=== PATIENT | female | born 1960 | race Caucasian/White ===

== ENCOUNTER 2018-07-18 06:20 | Inpatient (IN) ==
[2018-07-08 12:53] LABS: Appearance,Urine CLEAR; Bilirubin,Urine NEG (NEG); Color,Urine STRAW; Glucose,Urine (UA) NEGATIVE (NEG); Leukocyte Esterase,Urine NEG /uL (NEG); Protein,Urine NEG (NEG); Specific Gravity,Urine 1.011 (1.000-1.035); Urine Blood NEG mg/dL (<0.03); Urobilinogen,Urine NEG (NEG)
[2018-07-08 13:31] LABS: Basophils # (Auto) 0 K/mcL (0.0-0.3); Basophils % (Auto) 0.3 % (0.0-2.0); Eosinophils # (Auto) 0.1 K/mcL (0.0-0.7); Granulocytes % (Auto) 68.9 % (38.0-78.0); Lymphocytes # (Auto) 1.4 K/mcL (1.5-4.8); Lymphocytes % (Auto) 24.1 % (15.5-49.0); Mean Cell Volume 88.5 fL (80.0-100.0); Mean Corpuscular HGB Conc 32.8 g/dL (31.0-36.0); Monocytes # (Auto) 0.3 K/mcL (0.1-0.9); Monocytes % (Auto) 4.7 % (1.0-12.0); Platelet Count 250 K/mcL (140-440); RBC 4.99 M/mcL (4.00-5.20); Red Cell Distribution Width 14.3 % (11.5-14.5)
[2018-07-08 13:34] LABS: Blood Urea Nitrogen 17 mg/dl (6-20)
[2018-07-18] MEDS ORDERED: ceFAZolin 2 GM in DEXTROSE 5% IN WATER 50 ML IV SCH (07:00)
[2018-07-18] MEDS ORDERED: 0.9 % SODIUM CHLORIDE 9 ML, KETOROLAC 30 MG, ROPIVACAINE HCL/PF 49.5 ML, EPINEPHrine 0.... IJ SCH (07:00)
[2018-07-18] MEDS ORDERED: GENTAMICIN SULFATE 800 MG/20 ML VIAL IR ONE (08:09)
[2018-07-18] MEDS ORDERED: SCOPOLAMINE 1 PATCH PATCH TOPICAL ONE (09:25)
[2018-07-18] MEDS ORDERED: PROPOFOL 200 MG/20 ML VIAL IV ONE (10:46)
[2018-07-18] MEDS ORDERED: ONDANSETRON 4 MG/2 ML VIAL ONE (10:46)
[2018-07-18] MEDS ORDERED: MIDAZOLAM 5 MG/5 ML VIAL ONE (10:46)
[2018-07-18] MEDS ORDERED: DEXAMETHASONE 10 MG/ML VIAL ONE (10:46)
[2018-07-18] MEDS ORDERED: LIDOCAINE HCL/PF 100 MG/5 ML SYRINGE IV ONE (10:46)
[2018-07-18] MEDS ORDERED: ONDANSETRON 4 MG/2 ML VIAL IV PRN ×2 (12:11→12:44)
[2018-07-18] MEDS ORDERED: FLUMAZENIL 0.1 MG/ML ML IV PRN (12:11)
[2018-07-18] MEDS ORDERED: NALOXONE HCL 0.4 MG/ML VIAL IV PRN (12:11)
[2018-07-18] MEDS ORDERED: PROMETHAZINE 25 MG/ML VIAL IV PRN (12:11)
[2018-07-18] MEDS ORDERED: IPRATROPIUM/ALBUTEROL 3 ML AMPUL.NEB NEB PRN (12:11)
[2018-07-18] MEDS ORDERED: BENZOCAINE/MENTHOL 1 LOZENGE PO PRN ×2 (12:11→12:44)
[2018-07-18] MEDS ORDERED: ACETAMINOPHEN 1,000 MG/100 ML BOTTLE IV ONE (12:11)
[2018-07-18] MEDS ORDERED: KETOROLAC 15 MG/ML VIAL IV PRN (12:11)
[2018-07-18] MEDS ORDERED: LACTATED RINGERS 250 ML IV PRN (12:11)
[2018-07-18] MEDS ORDERED: MEPERIDINE 25 MG/ML SYRINGE IV PRN (12:11)
[2018-07-18] MEDS ORDERED: diphenhydrAMINE 50 MG/ML VIAL IV PRN (12:11)
[2018-07-18] MEDS ORDERED: LACTATED RINGERS 1,000 ML IV SCH (12:15)
[2018-07-18] MEDS ORDERED: MAGNESIUM HYDROXIDE 30 ML ORAL.SUSP PO PRN (12:44)
[2018-07-18] MEDS ORDERED: BISACODYL 10 MG SUPP.RECT PR PRN (12:44)
[2018-07-18] MEDS ORDERED: FLEETS ADULT ENEMA PR PRN (12:44)
[2018-07-18] MEDS ORDERED: POLYETHYLENE GLYCOL 3350 17 GM PACKET PO PRN (12:44)
[2018-07-18] MEDS ORDERED: TRANEXAMIC ACID 1,000 MG/10 ML VIAL IV ONE (12:44)
--- NOTE | 2018-07-18 12:53 | Brief Operative Note ---
Date of procedure: 07/18/18 Pre-op diagnosis: DJD left knee Post-op diagnosis: same Procedure: left TKR Grafts/Implants: Yes (triathlon knee) Anesthesia: EROS Surgeon: Andi Gallo General Education Professor: Alex Damon Estimated blood loss (cc): 100 Tourniquet Time (Minutes): 68 Specimens Removed/Pathology: none sent Condition: stable Disposition: PACU
[2018-07-18] MEDS: fentaNYL 100 MCG/2 ML VIAL IV PRN ×4 (13:26→13:35)
[2018-07-18] MEDS: HYDROmorphone 2 MG/ML VIAL IV PRN ×2 (13:51→14:07)
[2018-07-18] MEDS ORDERED: HYDROmorphone 2 MG/ML VIAL ONE (13:51)
--- NOTE | 2018-07-18 14:22 | XRay Report ---
CLINICAL INFORMATION: Post-op total knee COMPARISON: None. FINDINGS: Total knee prostheses is anatomically aligned. No osseous abnormality. Periarticular gas and soft tissue seen as expected. IMPRESSION: Negative Interpreted and Authenticated by: Carlos Sy 07/18/18
[2018-07-18] MEDS: 0.9 % SODIUM CHLORIDE 10 ML SYRINGE IV SCH ×2 (14:27→20:12)
[2018-07-18] MEDS: 0.9 % SODIUM CHLORIDE 1,000 ML IV SCH (14:41)
--- NOTE | 2018-07-18 16:01 | Operative Note ---
DATE OF OPERATION: 07/18/2018 PREOPERATIVE DIAGNOSIS: Degenerative joint disease of the left knee. POSTOPERATIVE DIAGNOSIS: Degenerative joint disease of the left knee. OPERATION: Omar-assisted left total knee replacement. SURGEON: Andi Gallo MD VALIDATION MANAGER: Alex Damon PA-C. ANESTHESIA: General. ESTIMATED BLOOD LOSS: 100 mL TOURNIQUET TIME: 68 minutes. SUMMARY OF PROCEDURE: General anesthesia was attained. The left leg was prepped and draped. Two stab incisions were made in the femur to place the pins for the robot array. The same was done in the tibia. A midline incision was made from the quadriceps to the tibial tubercle. This was taken down sharply to the quadriceps and medial retinaculum. A mid vastus approach was used. The split in the vastus medialis was made followed by 2 cm split in the quadriceps and then the medial retinaculum. The patella was mobilized laterally. The medial soft tissue was released. The checkpoint was placed in the femur and then the tibia. These points were confirmed on the robot. The leg was then rolled counterclockwise to alice the hip. The balancing was then done and the femoral and tibial landmarks confirmed. The balancing was then done for extensor and flexor balancing and gaps. A balance flexion and extension gap were obtained on the robotic plan. Using the robotic arm the tibial cut was made followed by all the femoral cuts. The bone was removed. The PCL was preserved. Trial reductions were then done using a 4 tibia and a 5 femur. The best combination of a full range of motion with excellent stability and balance stability was with a 9 mm cruciate retaining insert. The bone surfaces were thoroughly irrigated. A block was placed posteriorly using a multimodal solution. The measured resection was then done of the patellar bringing it down from 24 to 14 mm. The patella sized to a 32. A trial was done and the patella did not need a lateral release on the no-touch test. The components were next cemented in. Excess cement was removed. The cement was left to harden with the knee in full extension. The removal of all the cement outside of the prosthesis was confirmed by checking multiple times. The tourniquet was let down. All bleeding points were coagulated. The quadriceps and medial retinaculum as well as a BMI were closed in two layers using auxips-eh-rdinr sutures of #2 FiberWire followed by a running locking 0 Maxon. The subcutaneous tissue was closed with interrupted buried 2-0 Monocryl and the skin was closed with Dermabond. A sterile compressive dressing was applied. The sponge and needle count was correct. The patient tolerated the procedure well and was taken to the recovery room in stable condition. [id number] Job ID: [id number] Doc ID: [id number] Andi Gallo MD
[2018-07-18] MEDS: ceFAZolin 1 GM VIAL IV SCH (17:40)
[2018-07-18] MEDS: morphine 15 MG TABLET PO PRN (18:27)
[2018-07-18] MEDS: METHOCARBAMOL 750 MG TABLET PO PRN (20:05)
[2018-07-18] MEDS: FLUoxetine HCL 20 MG CAPSULE PO SCH (20:07)
[2018-07-18] MEDS: DOCUSATE SODIUM 100 MG CAPSULE PO SCH (20:07)
[2018-07-18] MEDS: SENNOSIDES 1 TABLET PO SCH (20:07)
[2018-07-18] MEDS: OMEPRAZOLE 20 MG CAPSULE PO SCH (20:07)
[2018-07-18] MEDS: ZOLPIDEM 5 MG TABLET PO SCH (20:07)
[2018-07-18] MEDS: ASPIRIN 325 MG ENTERIC COATED TABLET PO SCH (20:08)
[2018-07-19] MEDS: morphine 15 MG TABLET PO PRN ×3 (00:12→07:31)
[2018-07-19] MEDS: ceFAZolin 1 GM VIAL IV SCH (01:34)
[2018-07-19] MEDS: 0.9 % SODIUM CHLORIDE 1,000 ML IV SCH ×2 (03:21→17:32)
[2018-07-19] MEDS: METHOCARBAMOL 750 MG TABLET PO PRN ×3 (03:57→21:34)
[2018-07-19] MEDS: 0.9 % SODIUM CHLORIDE 10 ML SYRINGE IV SCH ×3 (04:00→21:35)
[2018-07-19] MEDS: LEVOTHYROXINE 50 MCG TABLET PO SCH (07:58)
[2018-07-19] MEDS ORDERED: HYDROmorphone PCA 30 MG/30 ML PCA.VIAL IV PRN (08:34)
[2018-07-19] MEDS: OMEPRAZOLE 20 MG CAPSULE PO SCH ×2 (08:45→21:34)
[2018-07-19] MEDS: HYDROCHLOROTHIAZIDE 25 MG TABLET PO SCH (08:46)
[2018-07-19] MEDS: SPIRONOLACTONE 25 MG TABLET PO SCH (08:46)
[2018-07-19] MEDS: buPROPion 150 MG TAB.XL.24H PO SCH (08:47)
[2018-07-19] MEDS: FLUoxetine HCL 20 MG CAPSULE PO SCH ×2 (08:47→21:35)
[2018-07-19] MEDS: DOCUSATE SODIUM 100 MG CAPSULE PO SCH ×2 (08:47→21:34)
[2018-07-19] MEDS: ASPIRIN 325 MG ENTERIC COATED TABLET PO SCH ×2 (08:48→21:34)
[2018-07-19] MEDS ORDERED: [UNRECOGNIZED DRUG - OTHER] PO SCH (09:00)
[2018-07-19] MEDS ORDERED: HYDROmorphone 2 MG/ML VIAL IV ONE (09:23)
--- NOTE | 2018-07-19 13:35 | Orthopedic Progress Note ---
Subjective Patient information: Note initiated : 07/19/18 at 1:32 pm Service Date, if different from initiated Date: [] Patient: Lauren Delgado 57 y/o F admitted on 07/18/18 for Left Total Knee Arthroplasty Omar. Chief Complaint: [] Principal diagnosis: Left TKA Interval history: Patient had worsening pain since last night and is now using Dilaudid IV for pain but says she is still fairly uncomfortable. She denies any calf pain, chest pain, SOB, cough, or any other acute symptoms. Objective Vital signs: Vital Signs Temp Pulse Resp BP BP Pulse Ox 07/19/18 13:00 15 93 07/19/18 11:56 16 94 07/19/18 11:55 70 07/19/18 11:50 97.8 F 68 16 105/62 95 07/19/18 11:12 16 07/19/18 09:41 70 07/19/18 04:17 103/51 07/19/18 03:55 97.7 F 65 18 97/63 95 07/19/18 00:35 98 F 71 18 106/59 90 07/18/18 19:25 98.9 F 72 16 112/69 93 07/18/18 16:30 98.2 F 64 16 108/70 94 07/18/18 16:00 98 F 70 16 107/67 92 07/18/18 15:33 98.4 F 65 16 109/66 07/18/18 15:00 98 F 70 16 108/68 07/18/18 14:45 98 F 67 14 106/70 92 07/18/18 14:30 98.2 F 75 16 114/77 91 07/18/18 14:10 97.2 F 61 19 110/60 97 07/18/18 13:55 97.2 F 64 17 108/55 98 07/18/18 13:40 97.2 F 71 21 114/68 98 Intake and Output 07/18/18 07/19/18 07/19/18 21:59 05:59 13:59 Intake Total 600 1250 480 Output Total 1000 350 700 Balance -400 900 -220 Intake: IV 1000 Sodium Chloride 0.9% 1,000 ml @ 1000 75 mls/hr IV .[id number] [facility] Rx#: [id number] Oral 600 250 480 Output: Urine Catheter Amount 1000 700 Void Amount 350 Other: Meal Dinner Breakfast Percent of Meal Consumed 50% 25% Feeding Ability Independent Independent Urine Appearance Clear Clear Clear Straight Clear Urine Color Straw Straw Bright Yellow Straight Bright Yellow Urine Odor Normal Normal Weight 239 lb Intake & Output: Intake & Output 07/18/18 07/19/18 07/19/18 21:59 05:59 13:59 Intake Total 600 1250 480 Output Total 1000 350 700 Balance -400 900 -220 Weight 239 lb Intake: IV 1000 Sodium Chloride 0.9% 1,000 ml @ 1000 75 mls/hr IV .[id number] [facility] Rx#: [id number] Oral 600 250 480 Output: Urine Catheter Amount 1000 700 Void Amount 350 Other: Meal Dinner Breakfast Percent of Meal Consumed 50% 25% Feeding Ability Independent Independent Urine Appearance Clear Clear Clear Straight Clear Urine Color Straw Straw Bright Yellow Straight Bright Yellow Urine Odor Normal Normal Incision clean and dry: Yes Dressing: Yes clean, Yes dry Weight bearing status: full Neurological exam IM: Yes neurovascular intact Extremities exam IM: No calf tenderness, Yes Foot pink and warm - Labs CBC & BMP: 07/19/18 04:45 07/08/18 10:58 Labs: 07/19/18 07/08/18 04:45 10:58 Hgb 11.3 L 14.5 Hct 34.1 L 44.2 Assessment and Plan (1) Status post total knee replacement 1. Begin transitioning to oral pain medicine starting tomorrow morning 2. continue PT 3. Plan to discharge tomorrow 4. follow up next week. Status: Acute
[2018-07-19] MEDS: ZOLPIDEM 5 MG TABLET PO SCH (21:34)
[2018-07-19] MEDS: SENNOSIDES 1 TABLET PO SCH (21:35)
[2018-07-20] MEDS: METHOCARBAMOL 750 MG TABLET PO PRN (04:17)
[2018-07-20] MEDS: 0.9 % SODIUM CHLORIDE 1,000 ML IV SCH (04:44)
[2018-07-20] MEDS: 0.9 % SODIUM CHLORIDE 10 ML SYRINGE IV SCH (05:54)
[2018-07-20] MEDS ORDERED: HYDROmorphone 2 MG TABLET PO PRN (07:48)
[2018-07-20] MEDS: ONDANSETRON 4 MG ODT TABLET SL PRN ×2 (07:58→12:59)
--- NOTE | 2018-07-20 08:43 | Orthopedic Progress Note ---
Subjective Patient information: Note initiated : 07/20/18 at 8:42 am Service Date, if different from initiated Date: [] Patient: Lauren Delgado 57 y/o F admitted on 07/18/18 for Left Total Knee Arthroplasty Omar. Chief Complaint: [doing well on pain pills and ambulating very well] Principal diagnosis: Left TKA Objective Vital signs: Vital Signs Temp Pulse Resp BP BP Pulse Ox 07/20/18 07:41 99.6 F H 72 16 112/62 95 07/20/18 04:29 18 07/20/18 04:27 98.9 F 98 H 18 131/81 98 07/19/18 23:48 98.9 F 77 18 111/63 96 07/19/18 20:00 20 98 07/19/18 19:32 98.5 F 73 20 108/64 98 07/19/18 18:30 15 07/19/18 15:46 97.9 F 16 110/66 95 07/19/18 15:00 16 97 07/19/18 14:00 67 17 96 07/19/18 13:00 15 93 07/19/18 11:56 16 94 07/19/18 11:55 70 07/19/18 11:50 97.8 F 68 16 105/62 95 07/19/18 11:12 16 07/19/18 09:41 70 Intake and Output 07/19/18 07/20/18 07/20/18 21:59 05:59 13:59 Intake Total 240 Output Total 700 1250 Balance -460 -1250 Intake: Oral 240 Output: Void Amount 700 1250 Other: Urine Appearance Clear Urine Color Dark Yellow Weight 241 lb Intake & Output: Intake & Output 07/19/18 07/20/18 07/20/18 21:59 05:59 13:59 Intake Total 240 Output Total 700 1250 Balance -460 -1250 Weight 241 lb Intake: Oral 240 Output: Void Amount 700 1250 Other: Urine Appearance Clear Urine Color Dark Yellow Incision: Yes healing Incision clean and dry: Yes Dressing: Yes clean Weight bearing status: full Neurological exam IM: Yes oriented X3, Yes neurovascular intact Extremities exam IM: Yes Foot pink and warm (dc home today), Yes neurovascular intact - Labs CBC & BMP: 07/20/18 04:25 07/08/18 10:58 Labs: 07/20/18 07/19/18 07/08/18 04:25 04:45 10:58 Hgb 11.8 L 11.3 L 14.5 Hct 35.0 L 34.1 L 44.2
[2018-07-20] MEDS: HYDROmorphone 2 MG TABLET PO PRN ×2 (08:56→12:58)
[2018-07-20] MEDS: LEVOTHYROXINE 50 MCG TABLET PO SCH (08:57)
--- NOTE | 2018-07-20 09:09 | Discharge Summary ---
Ortho Discharge - TKA - Patient Instructions Diet: Regular Diet Total Knee Protocol: For Total Knee: Start ROM DEB with stationary bike or rocking chair. Work on gaining full extension of knee. Posterior dislocation precautions provided. Hip abductor strengthening and gait training instructions provided. Apply Cryocuff as instructed. Patient Education: Cyclobenzaprine (By mouth), Hydromorphone (By mouth), Ondansetron (By mouth), Total Knee Replacement (DC) Additional Instructions: Discharge Instructions: Please pick up man CPM from [facility] (within 24 hours of discharge). Instructions for use: Start CPM at 40 degrees flexion and advance as tolerated to 90 degrees flexion. Use Daily as tolerated. Do the exercises at home that physical therapy gave you throughout the day. Weight bearing as tolerated. Wear comfortable clothing for physical therapy. You are scheduled to start physical therapy at [facility] ([phone]) on Take your prescription, photo ID, insurance cards, and current medication list with you to your first physical therapy appointment. Take your prescription to pick up man any medication or equipment (such as walker, crutches, toilet riser or C.P.M.) You have Dermabond (a dressing with a mesh-like appearance), DO NOT remove mesh. Cover site daily with gauze dressing. You may start showering on post op day #2. The Dermabond dressing can get wet, do not scrub dressing. Pat dry, then place new dressing (above). To avoid constipation while taking any narcotic pain medication, take an over the counter stool softener/laxative. Use your Cryocuff or ice packs as directed, on for 20 minutes at a time throughout the day. This and elevation will help with pain and swelling. Call your physician for fevers above 100.5 or pain not controlled by medication. Your prescriptions are with your discharge information. Some medications were electronically transmitted to your pharmacy of choice. Take Aspirin twice daily, for 30 days, as prescribed to prevent blood clots (see medication list). - Follow Up Plan Follow Up Appointments: Alex Damon PA-C [Physician Matcher] - 07/31/18 10:40 am Disposition: Home, Self-Care Prognosis: Fair Rehab Potential: Fair I certify that the patient requires SNF services: No - Orders For Discharge Prescriptions: Aspirin [Ecotrin] 325 mg PO BID #60 tab.ec Cyclobenzaprine [Flexeril] 10 mg PO TID PRN #30 tab PRN Reason: Spasms HYDROmorphone HCL [Dilaudid] 4 mg PO Q4-6HP PRN #60 tab PRN Reason: Pain Ondansetron [Zofran ODT] 4 mg SL Q4HP PRN #30 tab PRN Reason: Nausea Additional Discharge Orders: Physical Therapy at Discharge - TKA Location: None Selected Commode Discharge Order Location: None Selected
[2018-07-20] MEDS: FLUoxetine HCL 20 MG CAPSULE PO SCH (11:47)
[2018-07-20] MEDS: HYDROCHLOROTHIAZIDE 25 MG TABLET PO SCH (11:47)
[2018-07-20] MEDS: SPIRONOLACTONE 25 MG TABLET PO SCH (11:48)
[2018-07-20] MEDS: ASPIRIN 325 MG ENTERIC COATED TABLET PO SCH (11:49)
[2018-07-20] MEDS: OMEPRAZOLE 20 MG CAPSULE PO SCH (11:49)
[2018-07-20] MEDS: buPROPion 150 MG TAB.XL.24H PO SCH (11:49)
[2018-07-20] MEDS: DOCUSATE SODIUM 100 MG CAPSULE PO SCH (11:49)
== END 2018-07-20 14:30 | disposition home or self-care (01) | DRG 470 ==
LOC: MEDSUR 06:20
PROVIDERS: ADMIT Orthopaedic Surgery Foot and Ankle Surgery; ATTEND Orthopaedic Surgery Foot and Ankle Surgery

== ENCOUNTER 2022-04-10 13:40 | Inpatient (IN) ==
[2022-04-10] MEDS ORDERED: IOPAMIDOL 100 ML BOTTLE IV ONE (13:41)
--- NOTE | 2022-04-10 14:00 | Emergency Department Note ---
HPI General Chief complaint: Abdominal Pain Stated complaint: abd. pain Time Seen by Provider: 04/10/22 14:00 Source: patient Mode of arrival: wheelchair Limitations: no limitations History of Present Illness HPI Narrative: Narrative: Patient is a 61-year-old female with a complex history who presents to the emergency department due to abdominal pain since 4 am. She began to have pain in the right upper quadrant with radiation to her back at 4 am. She also has had nausea, vomiting, and diarrhea. Her vomit has been yellow in color without blood. She denies palliative or provocative factors for pain, nausea, and diarrhea. She is denies any other concerns at this time. Related Data Home Medications Medication Instructions Recorded Confirmed cholecalciferol (vitamin D3) 125 125 mcg PO QDAY 09/02/19 04/11/22 mcg (5,000 unit) capsule aspirin 81 mg tablet,delayed 81 mg PO QHS 12/07/21 04/11/22 release albuterol sulfate 2.5 mg/3 mL 2.5 mg inhalation QIDP PRN 04/11/22 04/11/22 (0.083 %) solution for nebulization shortness of breath or wheezing albuterol sulfate 90 mcg/actuation 2 puff inhalation Q4-6HP PRN 04/11/2204/02 aerosol inhaler (Ventolin HFA) shortness of breath or wheezing bupropion HCl 300 mg 24 hr tablet, 300 mg PO DAILY 04/11/22 04/11/22 extended release fluoxetine 40 mg capsule 40 mg PO BID 04/11/22 04/11/22 levothyroxine 50 mcg tablet 50 mcg PO QAMAC 04/11/22 04/11/22 magnesium oxide 400 mg PO HS 04/11/22 04/11/22 omeprazole 20 mg capsule,delayed 20 mg PO BIDAC 04/11/22 04/11/22 release Previous Rx's Medication Instructions Recorded furosemide 20 mg tablet 20 mg PO QAM #90 tabs 08/30/21 estradiol 2 mg (7.5 mcg/24 hour) See Rx Instructions .Route 10/04/21 vaginal ring (Estring) .COMPLEX #1 Ring ondansetron 4 mg disintegrating 4 mg PO Q6H PRN nausea and 01/10/22 tablet vomiting #20 tabs spironolactone 25 2 tab PO QDAY #180 tabs 03/21/22 mg-hydrochlorothiazide 25 mg tablet tirzepatide 5 mg/0.5 mL 5 mg (0.5 mL) subcut QWEEK #2 mL 03/21/22 subcutaneous pen injector (Mounjaro) tirzepatide 2.5 mg/0.5 mL 2.5 mg (0.5 mL) subcut QWEEK 4 03/22/22 subcutaneous pen injector weeks #2 mL (Mounjaro) zolpidem 10 mg tablet 10 mg PO HS INSOMNIA #90 tabs 03/31/22 Allergies Allergy/AdvReac Type Severity Reaction Status Date / Time iron dextran complex Allergy Severe Difficulty Verified 04/10/22 13:46 Breathing gabapentin [From Neurontin] Allergy Unknown Unknown Verified 04/10/22 21:22 droperidol AdvReac Mild Anxiety Verified 04/10/22 13:46 prochlorperazine AdvReac Mild Vomiting Verified 04/10/22 13:46 [From Compazine] IVP DYE Allergy Mild Hives Uncoded 03/21/22 08:04 Review of Systems ROS ROS Narrative: Narrative: Constitutional: Denies fever or weakness Eyes: Denies eye pain or vision change ENT ED: Denies throat pain or rhinorrhea Cardiovascular: Denies chest pain or edema Respiratory: Denies shortness of breath or cough Gastrointestinal: Reports abdominal pain, nausea, vomiting and diarrhea; Denies constipation, hematochezia or melena Genitourinary: Denies dysuria or frequency Musculoskeletal: Denies back pain or myalgia Integumentary: Denies rash or lesions Neurological: Denies headache, weakness, numbness, confusion, abnormal gait or dizziness Endocrine: Denies fatigue or polyuria PFSH Narrative Patient History Narrative: Narrative: Medical/Surgical/Family History All Active Problems Acute cholangitis (Acute) Sepsis (Acute) Acute pancreatitis (Acute) Obstructive sleep apnea (Chronic) Diabetes (Chronic) H/O rectocele repair (Acute) Hypercalcemia (Acute) Chronic kidney disease (Chronic) Restrictive lung disease (Chronic) Nocturnal hypoxia (Chronic) Lower extremity weakness (Acute) Elevated liver enzymes (Chronic) Hyperglycemia (Chronic) Recurrent candidiasis of vagina (Chronic) Sinusitis, acute maxillary (Acute) Pulmonary scarring (Chronic) Shortness of breath (Chronic) Fluid retention (Chronic) H/O cardiac radiofrequency ablation (Acute) Morbid obesity with BMI of 40.0-44.9, adult (Chronic) Asthma (Chronic) Acute URI (Acute) Cough (Chronic) Atrial fibrillation (Chronic) Tachycardia with heart rate 121-140 beats per minute (Acute) Abnormal vaginal bleeding in postmenopausal patient (Chronic) Acute pelvic pain, female (Acute) Cervicitis, acute, non-specific (Acute) Bronchospasm (Acute) Pneumonia (Acute) Encounter for Health Maintenance Examination in Adult (Acute) History of hysterectomy leaving cervix intact (Chronic) Cholecystectomy planned (Chronic) Obesity (Chronic) Hiatal hernia (Chronic) Arthritis of left knee (Chronic) Arthralgia (Chronic) Hypertension (Chronic) Sleep apnea (Chronic) Anxiety (Chronic) Allergic rhinitis (Chronic) Hemorrhoid (Chronic) Restless leg syndrome (Chronic) Hyperlipidemia (Chronic) Edema (Chronic) Epigastric pain (Chronic) Palpitations (Chronic) Insomnia (Chronic) Depression with anxiety (Chronic) History of pancreatitis (Chronic) Chronic diarrhea (Chronic) Hypothyroidism (Chronic) Migraine (Chronic) Atrophic vaginitis (Chronic) GERD (gastroesophageal reflux disease) (Chronic) Chronic back pain (Chronic) Chronic sinusitis (Chronic) Cardiomegaly (Chronic) Surgical menopause (Chronic) Hormone replacement therapy (Chronic) Hyperglycemia (Chronic) Major depression (Chronic) Diverticulosis (Chronic) Myalgia (Chronic) Headache (Chronic) Hypotension (Chronic) Unintentional weight loss (Chronic) Decrease in appetite (Chronic) Sinusitis, acute maxillary (Chronic) Fatigue (Chronic) Gastritis (Chronic) Postmenopausal (Chronic) Encounter for medication monitoring (Chronic) Chronic narcotic use (Chronic) Nausea (Chronic) Upper respiratory infection (Chronic) Status post total knee replacement (Acute) Medical History Allergic rhinitis Anxiety Arthralgia Arthritis of left knee Atrophic vaginitis Cardiomegaly Cholecystectomy planned 02/2016 Chronic back pain Chronic diarrhea Chronic narcotic use Chronic sinusitis Decrease in appetite Depression with anxiety Diverticulosis Edema Encounter for medication monitoring Epigastric pain Fatigue Gastritis GERD (gastroesophageal reflux disease) Headache Hemorrhoid Hiatal hernia per CXR 07/2015, history of failed Familia fundoplication History of pancreatitis Hormone replacement therapy Hyperglycemia Hyperlipidemia Hypertension Hypotension Hypothyroidism Insomnia Major depression Migraine Myalgia Nausea Nocturnal hypoxia Obesity Palpitations Postmenopausal Pulmonary scarring Restless leg syndrome Restrictive lung disease Sinusitis, acute maxillary Sleep apnea Surgical menopause Unintentional weight loss Upper respiratory infection Surgical History H/O bariatric surgery gastric sleeve 2015 History of cholecystectomy (~02/2016) History of hysterectomy ~1997 Ovaries removed, cervix spared History of repair of rectocele Dr. Quiroz 12/08/21 Total knee replacement status LT knee Dr. Gallo Family History Other No pertinent family history Social History Smoking Status: Never smoker Alcohol Intake Frequency: 0-2 drinks per day Substance Use: does not use Exam Narrative Narrative: Narrative: General Limitations: no limitations General appearance: Present alert and in no apparent distress; Absent anxious, appears intoxicated or sleepy Head Head: Present atraumatic and normocephalic Eye Eye: Present EOMI; Absent scleral icterus or nystagmus ENT ENT: Present mucous membranes moist; Absent nasal congestion Neck Neck: Present full ROM; Absent tenderness Chest Chest: Present normal inspection and symmetric chest wall rise Respiratory Respiratory: Present normal lung sounds bilaterally; Absent respiratory distress or accessory muscle use Cardiovascular Cardiovascular: Present regular rate, normal rhythm and normal heart sounds Adbominal Abdominal: Present soft, tenderness, guarding and normal bowel sounds; Absent distention, rebound or rigidity Extremities Extremities: Present normal inspection and full ROM Back Back: Present normal inspection and full ROM; Absent CVA tenderness (R) or CVA tenderness (L) Neurological Neurological: Present alert and oriented X3 Psychiatric Psychiatric: Present normal affect and normal mood Skin Skin: Present warm (WNL), dry and normal color Course Vital Signs Vital signs: Vital Signs Temperature 97.9 F 04/10/22 13:43 Pulse Rate 108 H 04/10/22 13:43 Respiratory Rate 20 04/10/22 13:43 Blood Pressure 138/79 04/10/22 13:43 Pulse Oximetry (%) 97 04/10/22 13:43 Oxygen Delivery Method 04/10/22 13:43 Temperature 98.5 F 04/12/22 20:54 Pulse Rate 74 04/12/22 20:54 Respiratory Rate 14 04/12/22 20:54 Blood Pressure 127/77 04/12/22 20:54 Pulse Oximetry (%) 94 04/12/22 20:54 Oxygen Delivery Method 04/12/22 20:54 Oxygen Flow Rate (L/min) 0 04/12/22 20:00 [facility] MDM Narrative Medical decision making narrative: Narrative: Patient is a 61-year-old female with a complex history who presents to the emergency department due to abdominal pain, nausea, vomiting, and diarrhea. Differential diagnoses include pancreatitis, gastritis, peptic ulcer disease, liver disease, colitis, and sbo. Patient's CT is reassuring. Labs demonstrate elevated lipase concerning for pancreatitis. She is receiving fluids. She has received medication for pain and nausea/vomiting. I have spoken to Dr. Sherman who was concerned that patient would require an ERCP due to narrowing at the ampulla of the biliary system. We will talk to Dr. Balderas to discuss patient. I have signed patient out to Dr. Gil. Lab Data Result diagrams: 04/11/22 05:15 04/12/22 08:04 Labs: Lab Results 04/10/22 04/10/22 04/10/22 Range/Units 14:57 15:18 15:23 WBC 13.4 H (4.5-11.0) K/mcL RBC 5.57 H (3.59-5.38) M/mcL Hgb 16.4 H (11.2-15.7) g/dL Hct 48.4 H (34.1-44.9) % POC Hct 50.0 H (36-48) MCV 86.9 (80.0-100.0) fL MCH 29.4 (26.0-34.0) pg MCHC 33.9 (31.0-36.0) g/dL RDW 12.6 (11.5-14.5) % Plt Count 272 (140-440) K/mcL MPV 10.5 (8.8-12.5) fL Immature Gran % (Auto) 0.3 (0.0-0.5) % Neut % (Auto) 91.8 H (38.0-78.0) % Lymph % (Auto) 4.5 L (15.5-49.0) % [place] % (Auto) 3.1 (1.0-12.0) % Eos % (Auto) 0 (0.0-7.0) % Baso % (Auto) 0.3 (0.0-2.0) % Lymph # (Auto) 0.60 L (1.50-4.80) K/mcL [place] # (Auto) 0.41 (0.10-0.90) K/mcL Eos # (Auto) 0 (0.00-0.70) K/mcL Baso # (Auto) 0.04 (0.00-0.30) K/mcL Immature Gran # 0.04 (0.00-0.05) K/mcl Absolute Neutrophils 12.32 H (1.80-8.00) K/mcL POC VBG pH (7.32-7.42) POC VBG pCO2 at Temp (41-51) POC VBG pO2 (25-40) POC VBG HCO3 (24-28) POC VBG Total CO2 (25-29) POC Venous O2 Sat (40-70) POC VBG Base Excess (-2-2) VBG Lactic Acid (0.5-2) POC Sodium 140 (133-145) POC Potassium 3.4 (3.3-5.1) POC Chloride 104 (96-108) POC Total CO2 21.0 L (22-30) POC BUN 25 H (6-20) POC Creatinine 1.0 (0.6-1.2) POC Glucose 155 H (70-105) POC WB Ioniz Calcium 0.99 L (1.16-1.32) Total Bilirubin (0.1-1.0) mg/dL Direct Bilirubin (0-0.3) mg/dL AST (<32) U/L ALT (<40) U/L Alkaline Phosphatase (39-117) U/L Total Protein (5.9-8.4) gm/dL Albumin (3.2-5.2) gm/dL Globulin (2.2-3.7) gm/dL Lipase (7-60) U/L Procalcitonin (<0.10) ng/mL Urine Color Dona Urine Appearance Hazy A (Clear) Urine pH 5.0 (5.0-9.0) Ur Specific [place] 1.032 (1.000-1.035) Urine Protein 100 A (Negative) mg/dL Urine Glucose (UA) Negative (Negative) mg/dL Urine Ketones 80 A (Negative) mg/dL Urine Occult Blood Negative (Negative) mg/dL Urine Nitrate Negative (Negative) Urine Bilirubin Negative (Negative) mg/dL Urine Urobilinogen Negative mg/dL Ur Leukocyte Esterase Negative (Negative) /uL Urine RBC < 1 (0-3) /hpf Urine WBC 2 (0-4) /hpf Ur Squamous Epith Cells 14 H (0-4) /hpf Urine Bacteria None (0) /hpf Hyaline Casts 3 H (0-2) /lph Urine Mucus Many A (None) /hpf Urine Yeast (Budding) Few A (None) /hpf Ur Culture Indicated? No 04/10/22 04/10/22 04/10/22 Range/Units 15:23 16:30 16:35 WBC (4.5-11.0) K/mcL RBC (3.59-5.38) M/mcL Hgb (11.2-15.7) g/dL Hct (34.1-44.9) % POC Hct (36-48) MCV (80.0-100.0) fL MCH (26.0-34.0) pg MCHC (31.0-36.0) g/dL RDW (11.5-14.5) % Plt Count (140-440) K/mcL MPV (8.8-12.5) fL Immature Gran % (Auto) (0.0-0.5) % Neut % (Auto) (38.0-78.0) % Lymph % (Auto) (15.5-49.0) % [place] % (Auto) (1.0-12.0) % Eos % (Auto) (0.0-7.0) % Baso % (Auto) (0.0-2.0) % Lymph # (Auto) (1.50-4.80) K/mcL [place] # (Auto) (0.10-0.90) K/mcL Eos # (Auto) (0.00-0.70) K/mcL Baso # (Auto) (0.00-0.30) K/mcL Immature Gran # (0.00-0.05) K/mcl Absolute Neutrophils (1.80-8.00) K/mcL POC VBG pH 7.50 H (7.32-7.42) POC VBG pCO2 at Temp 27.1 L (41-51) POC VBG pO2 28 (25-40) POC VBG HCO3 21.2 L (24-28) POC VBG Total CO2 22.0 L (25-29) POC Venous O2 Sat 62.0 (40-70) POC VBG Base Excess -2.0 (-2-2) VBG Lactic Acid 3.3 H (0.5-2) POC Sodium (133-145) POC Potassium (3.3-5.1) POC Chloride (96-108) POC Total CO2 (22-30) POC BUN (6-20) POC Creatinine (0.6-1.2) POC Glucose (70-105) POC WB Ioniz Calcium (1.16-1.32) Total Bilirubin 0.9 (0.1-1.0) mg/dL Direct Bilirubin < 0.2 (0-0.3) mg/dL AST 36 H (<32) U/L ALT 58 H (<40) U/L Alkaline Phosphatase 79 (39-117) U/L Total Protein 7.4 (5.9-8.4) gm/dL Albumin 4.5 (3.2-5.2) gm/dL Globulin 2.9 (2.2-3.7) gm/dL Lipase 900 H (7-60) U/L Procalcitonin 0.32 H (<0.10) ng/mL Urine Color Urine Appearance (Clear) Urine pH (5.0-9.0) Ur Specific [place] (1.000-1.035) Urine Protein (Negative) mg/dL Urine Glucose (UA) (Negative) mg/dL Urine Ketones (Negative) mg/dL Urine Occult Blood (Negative) mg/dL Urine Nitrate (Negative) Urine Bilirubin (Negative) mg/dL Urine Urobilinogen mg/dL Ur Leukocyte Esterase (Negative) /uL Urine RBC (0-3) /hpf Urine WBC (0-4) /hpf Ur Squamous Epith Cells (0-4) /hpf Urine Bacteria (0) /hpf Hyaline Casts (0-2) /lph Urine Mucus (None) /hpf Urine Yeast (Budding) (None) /hpf Ur Culture Indicated? ED POC Tests ED POC Tests: BEAR - Influenza A Negative BEAR - Influenza B Negative BEAR - SARS Antigen Negative Discharge Plan Patient/Caregiver Discharge Instructions Pt seen by TAPE CONTROL SKIN OR SPAR MILL OPERATOR/PA only: No Clinical Impression: Acute pancreatitis Activity: resume usual activities as tolerated Patient Disposition: Still a Patient Condition: Fair Discharge Date/Time: 04/10/22 21:16
[2022-04-10] MEDS ORDERED: ONDANSETRON 4 MG/2 ML VIAL IV ONE ×2 (14:37→19:15)
[2022-04-10] MEDS ORDERED: morphine 4 MG/ML VIAL IV ONE ×2 (14:37→19:15)
[2022-04-10] MEDS ORDERED: LACTATED RINGERS 1,000 ML IV ONE ×2 (14:38→19:25)
[2022-04-10 15:23] LABS: POC Calcium, Ionized 0.99 (1.16-1.32); POC Potassium 3.4 (3.3-5.1)
[2022-04-10 15:59] LABS: Basophils # (Auto) 0.04 K/mcL (0.00-0.30); Basophils % (Auto) 0.3 % (0.0-2.0); Eosinophils # (Auto) 0 K/mcL (0.00-0.70); Eosinophils % (Auto) 0 % (0.0-7.0); Hematocrit 48.4 % (34.1-44.9); Hemoglobin 16.4 g/dL (11.2-15.7); Lymphocytes % (Auto) 4.5 % (15.5-49.0); Mean Cell Volume 86.9 fL (80.0-100.0); Mean Corpuscular HGB Conc 33.9 g/dL (31.0-36.0); Mean Platelet Volume 10.5 fL (8.8-12.5); Monocytes # (Auto) 0.41 K/mcL (0.10-0.90); Monocytes % (Auto) 3.1 % (1.0-12.0); Neutrophils % (Auto) 91.8 % (38.0-78.0); Platelet Count 272 K/mcL (140-440); RBC 5.57 M/mcL (3.59-5.38); Red Cell Distribution Width 12.6 % (11.5-14.5); WBC 13.4 K/mcL (4.5-11.0)
--- NOTE | 2022-04-10 16:09 | Cat Scan Report ---
History: Epigastric pain and tenderness, prior hiatus hernia repair and a gastric sleeve graft technique: Following injection of intravenous nonionic contrast the patient was imaged from above the diaphragm through the symphysis pubis at 2.5 mm intervals. Sagittal and coronal reformats were created. The radiation exposure was limited using dose reduction technology. FINDINGS: There is a moderate size hiatus hernia which has enlarged significantly since the prior CT done on 10/09/08. There is no surrounding inflammation. Above the hernia the esophagus is nondilated. Below the diaphragm the stomach is decompressed. There is some radiopaque ingested material in the distal antrum. The liver and spleen are normal in size and homogeneous. The gallbladder has been removed. Intrahepatic ducts are nondilated. Proximal common bile duct measures 11 mm. At the ampulla the common bile duct measures 9 mm. There is no stone in the duct and no apparent mass or inflammation at the ampulla. The pancreas, adrenals and kidneys are normal. There is no kidney stone or hydronephrosis. Aorta and inferior vena cava are normal. There is no plaque formation. There is fluid throughout nondilated large and small intestine. There is no evidence of inflammation of the intestine. No abnormal air-fluid levels are present. Uterus and ovaries have been removed. There is a pessary ring in the vagina. Urinary bladder is only partially filled and unopacified. No abnormality is seen in or adjacent to the bladder. Moderate disc space narrowing is present at T12-L1. IMPRESSION: Moderate size hiatus hernia. Dilated extrahepatic bile ducts. These have enlarged since the prior CT in 2008. This may be a reservoir effect following a prior cholecystectomy or stricture at the ampulla. Dr. Orantes was called with the report Interpreted and Authenticated by: Dusty Moe 04/10/22
[2022-04-10] MEDS ORDERED: PIPERACILLIN SODIUM/TAZOBACTAM 3.375 GM in DEXTROSE 5% IN WATER 50 ML IV ONE (16:12)
[2022-04-10 16:17] LABS: ALT/SGPT 58 U/L (<40); AST/SGOT 36 U/L (<32); Albumin 4.5 gm/dL (3.2-5.2); Alkaline Phosphatase 79 U/L (39-117); Bilirubin,Direct < 0.2 mg/dL (0-0.3); Bilirubin,Total 0.9 mg/dL (0.1-1.0); Globulin 2.9 gm/dL (2.2-3.7)
[2022-04-10 16:27] LABS: Appearance,Urine HAZY (Clear); Bilirubin,Urine Negative (Negative); Color,Urine AMBER; Culture Indicated,Urine No; Glucose,Urine (UA) Negative (Negative); Ketones,Urine 80 mg/dL (Negative); Leukocyte Esterase,Urine Negative /uL (Negative); Mucus,Urine MANY /hpf; Nitrate,Urine Negative (Negative); Protein,Urine 100 mg/dL (Negative); Specific Gravity,Urine 1.032 (1.000-1.035); Urine Blood Negative (Negative); Urine Budding Yeast FEW /hpf; Urine Hyaline Cast 3 /lph (0-2); Urine RBC < 1 /hpf (0-3); Urine Squamous Epithelial Cell 14 /hpf (0-4); Urine WBC 2 /hpf (0-4); Urobilinogen,Urine Negative
--- NOTE | 2022-04-10 20:07 | Internal Med History&Physical ---
HPI History of Present Illness Patient information: Note initiated : 04/10/22 at 8:07 pm Service Date, if different from initiated Date: [] Patient: Lauren Delgado 61 y/o F admitted on for abd. pain. Chief Complaint: [Fever, chills, abdominal pain] Chief complaint: Abdominal pain History of present illness: Ms. Delgado is a 61 year old obese female with a past medical history significant for prediabetes, depression, and hypertension who presents to the hospital with acute onset of abdominal pain that started in the middle of the night. The patient states that she was in her usual state of health when she began to feel ill. She had acute onset abdominal pain in the epigastric and right upper quadrant region that was radiating towards her back. She characterizes the pain as intense. There were no alleviating factors. The pain was exacerbated by movement. In terms of severity, the pain was approximately 8 out of 10. The patient states that she also felt quite nauseous. On arrival she was hemodynamically stable and afebrile. She was found to have an elevated white blood cell count of 13.4. Her lactic acid on VBG was 3.3. The patient's CT abdomen pelvis revealed dilated extrahepatic bile ducts and this may be a reservoir effect following a prior cholecystectomy or stricture at the ampulla. She was also found to have an elevated lipase of 900. Her AST and ALT are climbing as well. The hospitalist service was asked admit the patient for further management and evaluation for suspected pancreatitis. Review of Systems All systems: reviewed and no additional remarkable complaints except as stated Constitutional Constitutional: Present as per HPI EENT Eyes: Present as per HPI; Absent blurry vision Cardiovascular Cardiovascular: Present as per HPI; Absent chest pain, dyspnea, dyspnea on exertion, leg edema or palpatations Respiratory Respiratory: Present as per HPI; Absent cough, dyspnea, dyspnea on exertion, wheezing or stridor Gastrointestinal Gastrointestinal: Present as per HPI; Absent abdominal pain, diarrhea, dysphagia, hematemesis, melena, nausea or vomiting Musculoskeletal Musculoskeletal: Present as per HPI; Absent joint swelling, limited range of motion, muscle cramps, muscle weakness or myalgias Integumentary Integumentary: Present as per HPI; Absent erythema, new lesions, rash or wounds Neurological Neurological: Present as per HPI; Absent abnormal gait, behavioral changes, focal weakness, headache(s), loss of vision, numbness, sensory deficit or syncope Endocrine Endocrine: Absent change in body appearance, fatigue or heat intolerance Hematologic/Lymphatic Hematologic/Lymphatic: Present as per HPI PFSH PFSH All Active Problems Acute cholangitis (Acute) Sepsis (Acute) Acute pancreatitis (Acute) Obstructive sleep apnea (Chronic) Diabetes (Chronic) H/O rectocele repair (Acute) Hypercalcemia (Acute) Chronic kidney disease (Chronic) Restrictive lung disease (Chronic) Nocturnal hypoxia (Chronic) Lower extremity weakness (Acute) Elevated liver enzymes (Chronic) Hyperglycemia (Chronic) Recurrent candidiasis of vagina (Chronic) Sinusitis, acute maxillary (Acute) Pulmonary scarring (Chronic) Shortness of breath (Chronic) Fluid retention (Chronic) H/O cardiac radiofrequency ablation (Acute) Morbid obesity with BMI of 40.0-44.9, adult (Chronic) Asthma (Chronic) Acute URI (Acute) Cough (Chronic) Atrial fibrillation (Chronic) Tachycardia with heart rate 121-140 beats per minute (Acute) Abnormal vaginal bleeding in postmenopausal patient (Chronic) Acute pelvic pain, female (Acute) Cervicitis, acute, non-specific (Acute) Bronchospasm (Acute) Pneumonia (Acute) Encounter for Health Maintenance Examination in Adult (Acute) History of hysterectomy leaving cervix intact (Chronic) Cholecystectomy planned (Chronic) Obesity (Chronic) Hiatal hernia (Chronic) Arthritis of left knee (Chronic) Arthralgia (Chronic) Hypertension (Chronic) Sleep apnea (Chronic) Anxiety (Chronic) Allergic rhinitis (Chronic) Hemorrhoid (Chronic) Restless leg syndrome (Chronic) Hyperlipidemia (Chronic) Edema (Chronic) Epigastric pain (Chronic) Palpitations (Chronic) Insomnia (Chronic) Depression with anxiety (Chronic) History of pancreatitis (Chronic) Chronic diarrhea (Chronic) Hypothyroidism (Chronic) Migraine (Chronic) Atrophic vaginitis (Chronic) GERD (gastroesophageal reflux disease) (Chronic) Chronic back pain (Chronic) Chronic sinusitis (Chronic) Cardiomegaly (Chronic) Surgical menopause (Chronic) Hormone replacement therapy (Chronic) Hyperglycemia (Chronic) Major depression (Chronic) Diverticulosis (Chronic) Myalgia (Chronic) Headache (Chronic) Hypotension (Chronic) Unintentional weight loss (Chronic) Decrease in appetite (Chronic) Sinusitis, acute maxillary (Chronic) Fatigue (Chronic) Gastritis (Chronic) Postmenopausal (Chronic) Encounter for medication monitoring (Chronic) Chronic narcotic use (Chronic) Nausea (Chronic) Upper respiratory infection (Chronic) Status post total knee replacement (Acute) Medical History Allergic rhinitis Anxiety Arthralgia Arthritis of left knee Atrophic vaginitis Cardiomegaly Cholecystectomy planned 02/2016 Chronic back pain Chronic diarrhea Chronic narcotic use Chronic sinusitis Decrease in appetite Depression with anxiety Diverticulosis Edema Encounter for medication monitoring Epigastric pain Fatigue Gastritis GERD (gastroesophageal reflux disease) Headache Hemorrhoid Hiatal hernia per CXR 07/2015, history of failed Familia fundoplication History of pancreatitis Hormone replacement therapy Hyperglycemia Hyperlipidemia Hypertension Hypotension Hypothyroidism Insomnia Major depression Migraine Myalgia Nausea Nocturnal hypoxia Obesity Palpitations Postmenopausal Pulmonary scarring Restless leg syndrome Restrictive lung disease Sinusitis, acute maxillary Sleep apnea Surgical menopause Unintentional weight loss Upper respiratory infection Surgical History H/O bariatric surgery gastric sleeve 2015 History of cholecystectomy (~02/2016) History of hysterectomy ~1997 Ovaries removed, cervix spared History of repair of rectocele Dr. Quiroz 12/08/21 Total knee replacement status LT knee Dr. Gallo Family History Other No pertinent family history Social History household members: other details: 2 adult children marital status: education level: college occupational status: retired occupation: RN at [employer] other: Two Adult Children daily servings fruits/ve-1 physical activity: none frequency: 3-4 times per week duration: 45-60 minutes/day smoking status: Never smoker alcohol intake frequency: 0-2 drinks per day substance use type: does not use seatbelt use: always MEDS/ALLERGIES Home Medications and Allergies Home Medications Medication Instructions Recorded Confirmed Type cholecalciferol (vitamin D3) 125 125 mcg PO QDAY 09/02/19 04/11/22 History mcg (5,000 unit) capsule furosemide 20 mg tablet 20 mg PO QAM #90 tabs 08/30/21 04/11/22 Rx estradiol 2 mg (7.5 mcg/24 hour) See Rx Instructions .Route 10/04/21 04/11/22 Rx vaginal ring (Estring) .COMPLEX #1 Ring aspirin 81 mg tablet,delayed 81 mg PO QHS 12/07/21 04/11/22 History release ondansetron 4 mg disintegrating 4 mg PO Q6H PRN nausea and 01/10/22 04/11/22 Rx tablet vomiting #20 tabs spironolactone 25 2 tab PO QDAY #180 tabs 03/21/22 04/11/22 Rx mg-hydrochlorothiazide 25 mg tablet tirzepatide 5 mg/0.5 mL 5 mg (0.5 mL) subcut QWEEK #2 mL 03/21/22 04/11/22 Rx subcutaneous pen injector (Mounjaro) tirzepatide 2.5 mg/0.5 mL 2.5 mg (0.5 mL) subcut QWEEK 4 03/22/22 04/11/22 Rx subcutaneous pen injector weeks #2 mL (Mounjaro) zolpidem 10 mg tablet 10 mg PO HS INSOMNIA #90 tabs 03/31/22 04/11/22 Rx albuterol sulfate 2.5 mg/3 mL 2.5 mg inhalation QIDP PRN 04/11/22 04/11/22 History (0.083 %) solution for nebulization shortness of breath or wheezing albuterol sulfate 90 mcg/actuation 2 puff inhalation Q4-6HP PRN 04/11/22 04/11/22 History aerosol inhaler (Ventolin HFA) shortness of breath or wheezing bupropion HCl 300 mg 24 hr tablet, 300 mg PO DAILY 04/11/22 04/11/22 History extended release fluoxetine 40 mg capsule 40 mg PO BID 04/11/22 04/11/22 History levothyroxine 50 mcg tablet 50 mcg PO QAMAC 04/11/22 04/11/22 History magnesium oxide 400 mg PO HS 04/11/22 04/11/22 History omeprazole 20 mg capsule,delayed 20 mg PO BIDAC 04/11/22 04/11/22 History release Allergies Allergy/AdvReac Type Severity Reaction Status Date / Time iron dextran complex Allergy Severe Difficulty Verified 04/10/22 13:46 Breathing gabapentin [From Neurontin] Allergy Unknown Unknown Verified 04/10/22 21:22 droperidol AdvReac Mild Anxiety Verified 04/10/22 13:46 prochlorperazine AdvReac Mild Vomiting Verified 04/10/22 13:46 [From Compazine] IVP DYE Allergy Mild Hives Uncoded 03/21/22 08:04 EXAM Constitutional Vitals: Temp Pulse Resp BP Pulse Ox O2 Del Method 97.9 F 102 H 20 144/98 97 04/10/22 13:43 04/10/22 19:33 04/10/22 13:43 04/10/22 18:16 04/10/22 19:33 04/10/22 13:43 DATA Data Completed and Pending Labs: Labs from last 24 hours 04/10/22 04/10/22 04/10/22 16:35 16:30 15:23 WBC RBC Hgb Hct POC Hct MCV MCH MCHC RDW Plt Count MPV Immature Gran % (Auto) Neut % (Auto) Lymph % (Auto) [place] % (Auto) Eos % (Auto) Baso % (Auto) Lymph # (Auto) [place] # (Auto) Eos # (Auto) Baso # (Auto) Immature Gran # Absolute Neutrophils POC VBG pH 7.50 H POC VBG pCO2 at Temp 27.1 L POC VBG pO2 28 POC VBG HCO3 21.2 L POC VBG Total CO2 22.0 L POC Venous O2 Sat 62.0 POC VBG Base Excess -2.0 VBG Lactic Acid 3.3 H POC Sodium POC Potassium POC Chloride POC Total CO2 POC BUN POC Creatinine POC Glucose POC WB Ioniz Calcium Total Bilirubin 0.9 Direct Bilirubin < 0.2 AST 36 H ALT 58 H Alkaline Phosphatase 79 Total Protein 7.4 Albumin 4.5 Globulin 2.9 Lipase 900 H Procalcitonin 0.32 H Urine Color Urine Appearance Urine pH Ur Specific [place] Urine Protein Urine Glucose (UA) Urine Ketones Urine Occult Blood Urine Nitrate Urine Bilirubin Urine Urobilinogen Ur Leukocyte Esterase Urine RBC Urine WBC Ur Squamous Epith Cells Urine Bacteria Hyaline Casts Urine Mucus Urine Yeast (Budding) Ur Culture Indicated? 04/10/22 04/10/22 04/10/22 15:23 15:18 14:57 WBC 13.4 H RBC 5.57 H Hgb 16.4 H Hct 48.4 H POC Hct 50.0 H MCV 86.9 MCH 29.4 MCHC 33.9 RDW 12.6 Plt Count 272 MPV 10.5 Immature Gran % (Auto) 0.3 Neut % (Auto) 91.8 H Lymph % (Auto) 4.5 L [place] % (Auto) 3.1 Eos % (Auto) 0 Baso % (Auto) 0.3 Lymph # (Auto) 0.60 L [place] # (Auto) 0.41 Eos # (Auto) 0 Baso # (Auto) 0.04 Immature Gran # 0.04 Absolute Neutrophils 12.32 H POC VBG pH POC VBG pCO2 at Temp POC VBG pO2 POC VBG HCO3 POC VBG Total CO2 POC Venous O2 Sat POC VBG Base Excess VBG Lactic Acid POC Sodium 140 POC Potassium 3.4 POC Chloride 104 POC Total CO2 21.0 L POC BUN 25 H POC Creatinine 1.0 POC Glucose 155 H POC WB Ioniz Calcium 0.99 L Total Bilirubin Direct Bilirubin AST ALT Alkaline Phosphatase Total Protein Albumin Globulin Lipase Procalcitonin Urine Color Dona Urine Appearance Hazy A Urine pH 5.0 Ur Specific [place] 1.032 Urine Protein 100 A Urine Glucose (UA) Negative Urine Ketones 80 A Urine Occult Blood Negative Urine Nitrate Negative Urine Bilirubin Negative Urine Urobilinogen Negative Ur Leukocyte Esterase Negative Urine RBC < 1 Urine WBC 2 Ur Squamous Epith Cells 14 H Urine Bacteria None Hyaline Casts 3 H Urine Mucus Many A Urine Yeast (Budding) Few A Ur Culture Indicated? No A/P Assessment and plan (1) Acute pancreatitis: Status: Acute (2) Diabetes: Status: Chronic Qualifiers: Diabetes mellitus type: type 2 Diabetes mellitus truck terminal manager insulin use: without truck terminal manager use Diabetes mellitus complication status: with kidney complications Diabetes mellitus complication detail: with chronic kidney disease (3) Sepsis: Status: Acute (4) Acute cholangitis: Status: Acute Narrative A/P Narrative: #Sepsis -The patient is febrile w/ a Tmax of 100.8, and elevated WBC of 13.4. She was also tachycardic w/ HR >90 -LA 3.3 -Continue aggressive IVF #Acute cholangitis -This is likely acute cholangitis rather than acute pancreatitis. Fever, RUQ pain, however no jaundice -There also may be concerns for spinchter of Oddi dysfunction -LFTs are trending upwards, lipase down to 443 -Blood cx pending, continue Cipro/Flagyl -GI consulted #HTN -Hold home diuretics #DM2 -Holding home tirzepatide Time Spent With Patient Time: Total time spent is greater than 50% in coordination of care (as documented) at patient's floor/unit and/or counseling patient: Initial: Total time with patient: 75 - 90 minutes
--- NOTE | 2022-04-10 21:13 | Emergency Department Note ---
Course Vital Signs Vital signs: Vital Signs Temperature 97.9 F 04/10/22 13:43 Pulse Rate 108 H 04/10/22 13:43 Respiratory Rate 20 04/10/22 13:43 Blood Pressure 138/79 04/10/22 13:43 Pulse Oximetry (%) 97 04/10/22 13:43 Oxygen Delivery Method 04/10/22 13:43 Temperature 100.3 F H 04/10/22 22:53 Pulse Rate 93 H 04/10/22 22:53 Respiratory Rate 24 H 04/10/22 22:53 Blood Pressure 123/75 04/10/22 22:53 Pulse Oximetry (%) 97 04/10/22 22:53 Oxygen Delivery Method 04/10/22 22:53 MDM MDM Narrative Medical decision making narrative: Narrative: Patient signed out to me with pancreatitis initially with spoke with the hospitalist who recommend consultation with gastroenterology. I did speak with Dr. Balderas, insulating machine operator on-call for the week, we reviewed the radiologist CT interpretations the patient's hepatic function panel and bilirubin. Her bilirubin does not show an obstructive process. He recommended medical management with IV fluids and pain control. Suspect the patient's pancreatitis may be related to her diabetes medication to her tirzepatide. Spoke with the hospitalist who has agreed to admit the patient. Lab Data Result diagrams: 04/10/22 15:23 Labs: Lab Results 04/10/22 04/10/22 04/10/22 Range/Units 14:57 15:18 15:23 WBC 13.4 H (4.5-11.0) K/mcL RBC 5.57 H (3.59-5.38) M/mcL Hgb 16.4 H (11.2-15.7) g/dL Hct 48.4 H (34.1-44.9) % POC Hct 50.0 H (36-48) MCV 86.9 (80.0-100.0) fL MCH 29.4 (26.0-34.0) pg MCHC 33.9 (31.0-36.0) g/dL RDW 12.6 (11.5-14.5) % Plt Count 272 (140-440) K/mcL MPV 10.5 (8.8-12.5) fL Immature Gran % (Auto) 0.3 (0.0-0.5) % Neut % (Auto) 91.8 H (38.0-78.0) % Lymph % (Auto) 4.5 L (15.5-49.0) % [place] % (Auto) 3.1 (1.0-12.0) % Eos % (Auto) 0 (0.0-7.0) % Baso % (Auto) 0.3 (0.0-2.0) % Lymph # (Auto) 0.60 L (1.50-4.80) K/mcL [place] # (Auto) 0.41 (0.10-0.90) K/mcL Eos # (Auto) 0 (0.00-0.70) K/mcL Baso # (Auto) 0.04 (0.00-0.30) K/mcL Immature Gran # 0.04 (0.00-0.05) K/mcl Absolute Neutrophils 12.32 H (1.80-8.00) K/mcL POC VBG pH (7.32-7.42) POC VBG pCO2 at Temp (41-51) POC VBG pO2 (25-40) POC VBG HCO3 (24-28) POC VBG Total CO2 (25-29) POC Venous O2 Sat (40-70) POC VBG Base Excess (-2-2) VBG Lactic Acid (0.5-2) POC Sodium 140 (133-145) POC Potassium 3.4 (3.3-5.1) POC Chloride 104 (96-108) POC Total CO2 21.0 L (22-30) POC BUN 25 H (6-20) POC Creatinine 1.0 (0.6-1.2) POC Glucose 155 H (70-105) POC WB Ioniz Calcium 0.99 L (1.16-1.32) Total Bilirubin (0.1-1.0) mg/dL Direct Bilirubin (0-0.3) mg/dL AST (<32) U/L ALT (<40) U/L Alkaline Phosphatase (39-117) U/L Total Protein (5.9-8.4) gm/dL Albumin (3.2-5.2) gm/dL Globulin (2.2-3.7) gm/dL Lipase (7-60) U/L Procalcitonin (<0.10) ng/mL Urine Color Dona Urine Appearance Hazy A (Clear) Urine pH 5.0 (5.0-9.0) Ur Specific [place] 1.032 (1.000-1.035) Urine Protein 100 A (Negative) mg/dL Urine Glucose (UA) Negative (Negative) mg/dL Urine Ketones 80 A (Negative) mg/dL Urine Occult Blood Negative (Negative) mg/dL Urine Nitrate Negative (Negative) Urine Bilirubin Negative (Negative) mg/dL Urine Urobilinogen Negative mg/dL Ur Leukocyte Esterase Negative (Negative) /uL Urine RBC < 1 (0-3) /hpf Urine WBC 2 (0-4) /hpf Ur Squamous Epith Cells 14 H (0-4) /hpf Urine Bacteria None (0) /hpf Hyaline Casts 3 H (0-2) /lph Urine Mucus Many A (None) /hpf Urine Yeast (Budding) Few A (None) /hpf Ur Culture Indicated? No 04/10/22 04/10/22 04/10/22 Range/Units 15:23 16:30 16:35 WBC (4.5-11.0) K/mcL RBC (3.59-5.38) M/mcL Hgb (11.2-15.7) g/dL Hct (34.1-44.9) % POC Hct (36-48) MCV (80.0-100.0) fL MCH (26.0-34.0) pg MCHC (31.0-36.0) g/dL RDW (11.5-14.5) % Plt Count (140-440) K/mcL MPV (8.8-12.5) fL Immature Gran % (Auto) (0.0-0.5) % Neut % (Auto) (38.0-78.0) % Lymph % (Auto) (15.5-49.0) % [place] % (Auto) (1.0-12.0) % Eos % (Auto) (0.0-7.0) % Baso % (Auto) (0.0-2.0) % Lymph # (Auto) (1.50-4.80) K/mcL [place] # (Auto) (0.10-0.90) K/mcL Eos # (Auto) (0.00-0.70) K/mcL Baso # (Auto) (0.00-0.30) K/mcL Immature Gran # (0.00-0.05) K/mcl Absolute Neutrophils (1.80-8.00) K/mcL POC VBG pH 7.50 H (7.32-7.42) POC VBG pCO2 at Temp 27.1 L (41-51) POC VBG pO2 28 (25-40) POC VBG HCO3 21.2 L (24-28) POC VBG Total CO2 22.0 L (25-29) POC Venous O2 Sat 62.0 (40-70) POC VBG Base Excess -2.0 (-2-2) VBG Lactic Acid 3.3 H (0.5-2) POC Sodium (133-145) POC Potassium (3.3-5.1) POC Chloride (96-108) POC Total CO2 (22-30) POC BUN (6-20) POC Creatinine (0.6-1.2) POC Glucose (70-105) POC WB Ioniz Calcium (1.16-1.32) Total Bilirubin 0.9 (0.1-1.0) mg/dL Direct Bilirubin < 0.2 (0-0.3) mg/dL AST 36 H (<32) U/L ALT 58 H (<40) U/L Alkaline Phosphatase 79 (39-117) U/L Total Protein 7.4 (5.9-8.4) gm/dL Albumin 4.5 (3.2-5.2) gm/dL Globulin 2.9 (2.2-3.7) gm/dL Lipase 900 H (7-60) U/L Procalcitonin 0.32 H (<0.10) ng/mL Urine Color Urine Appearance (Clear) Urine pH (5.0-9.0) Ur Specific [place] (1.000-1.035) Urine Protein (Negative) mg/dL Urine Glucose (UA) (Negative) mg/dL Urine Ketones (Negative) mg/dL Urine Occult Blood (Negative) mg/dL Urine Nitrate (Negative) Urine Bilirubin (Negative) mg/dL Urine Urobilinogen mg/dL Ur Leukocyte Esterase (Negative) /uL Urine RBC (0-3) /hpf Urine WBC (0-4) /hpf Ur Squamous Epith Cells (0-4) /hpf Urine Bacteria (0) /hpf Hyaline Casts (0-2) /lph Urine Mucus (None) /hpf Urine Yeast (Budding) (None) /hpf Ur Culture Indicated? ED POC Tests ED POC Tests: BEAR - Influenza A Negative BEAR - Influenza B Negative BEAR - SARS Antigen Negative Discharge Plan Patient/Caregiver Discharge Instructions Pt seen by DENTAL SERVICES DIRECTOR/PA only: No Clinical Impression: Acute pancreatitis Activity: resume usual activities as tolerated Patient Disposition: Xfer As Inpt ([facility]) Condition: Fair Discharge Date/Time: 04/10/22 21:16
[2022-04-10] MEDS ORDERED: ONDANSETRON 4 MG/2 ML VIAL IV PRN (21:17)
[2022-04-10] MEDS ORDERED: ACETAMINOPHEN 325 MG TABLET PO ONE (21:31)
[2022-04-10] MEDS: morphine 4 MG/ML VIAL IV PRN (21:39)
[2022-04-10] MEDS: LACTATED RINGERS 1,000 ML IV SCH (21:41)
[2022-04-10] MEDS: 0.9 % SODIUM CHLORIDE 10 ML SYRINGE IV SCH (21:41)
[2022-04-10] MEDS: ACETAMINOPHEN 325 MG TABLET PO PRN (21:46)
[2022-04-10] MEDS: DOCUSATE SODIUM 100 MG CAPSULE PO SCH (21:46)
[2022-04-10] MEDS: SENNOSIDES 1 TABLET PO SCH (21:46)
[2022-04-10] MEDS: oxyCODONE/APAP 5/325MG TABLET PO ONE ×2 (23:04→23:06)
[2022-04-10] MEDS: oxyCODONE/APAP 5/325MG TABLET PO PRN (23:07)
[2022-04-11] MEDS: morphine 4 MG/ML VIAL IV PRN ×5 (01:25→19:40)
[2022-04-11] MEDS ORDERED: oxyCODONE/APAP 5/325MG TABLET PO ONE (02:48)
[2022-04-11] MEDS: oxyCODONE/APAP 5/325MG TABLET PO PRN (02:53)
[2022-04-11] MEDS: LACTATED RINGERS 1,000 ML IV SCH ×5 (02:53→21:57)
[2022-04-11] MEDS ORDERED: ONDANSETRON 4 MG/2 ML VIAL ONE (03:43)
[2022-04-11] MEDS: ONDANSETRON 4 MG/2 ML VIAL IV PRN ×3 (03:46→18:53)
[2022-04-11] MEDS: 0.9 % SODIUM CHLORIDE 10 ML SYRINGE IV SCH ×3 (04:01→22:00)
[2022-04-11 06:58] LABS: Basophils # (Auto) 0.02 K/mcL (0.00-0.30); Basophils % (Auto) 0.3 % (0.0-2.0); Eosinophils # (Auto) 0.01 K/mcL (0.00-0.70); Eosinophils % (Auto) 0.1 % (0.0-7.0); Hematocrit 41.2 % (34.1-44.9); Hemoglobin 13.2 g/dL (11.2-15.7); Lymphocytes # (Auto) 1.01 K/mcL (1.50-4.80); Lymphocytes % (Auto) 15.1 % (15.5-49.0); Mean Cell Volume 90.9 fL (80.0-100.0); Mean Platelet Volume 10.5 fL (8.8-12.5); Monocytes # (Auto) 0.55 K/mcL (0.10-0.90); Monocytes % (Auto) 8.2 % (1.0-12.0); Neutrophils % (Auto) 75.9 % (38.0-78.0); Platelet Count 186 K/mcL (140-440); RBC 4.53 M/mcL (3.59-5.38); Red Cell Distribution Width 13.1 % (11.5-14.5); WBC 6.7 K/mcL (4.5-11.0)
[2022-04-11 07:32] LABS: Blood Urea Nitrogen 21 mg/dL (6-20); Calcium 8.2 mg/dL (8.6-10.4); Carbon Dioxide 22 mmol/L (22-30); Chloride 105 mmol/L (96-108); Glomerular Filtration Rate 70; Glucose 97 mg/dL (70-105)
[2022-04-11] MEDS ORDERED: POTASSIUM CHLORIDE 40 MEQ in DEXTROSE 5% IN WATER 500 ML IV ONE (07:54)
[2022-04-11] MEDS ORDERED: CIPROFLOXACIN 400 MG/200 ML BAG IV ONE (08:04)
[2022-04-11] MEDS: ENOXAPARIN 40 MG/0.4 ML SYRINGE SQ SCH (08:54)
[2022-04-11] MEDS: metroNIDAZOLE 500 MG/100 ML BAG IV SCH ×3 (08:54→21:57)
[2022-04-11] MEDS: DOCUSATE SODIUM 100 MG CAPSULE PO SCH ×2 (08:54→22:00)
[2022-04-11] MEDS: CIPROFLOXACIN 400 MG/200 ML BAG IV SCH ×2 (09:49→20:22)
--- NOTE | 2022-04-11 09:56 | Internal Med Progress Note ---
SUBJECTIVE Subjective Patient information: Note initiated : 04/11/22 at 9:55 am Service Date, if different from initiated Date: [] Patient: Lauren Delgado 61 y/o F admitted on 04/10/22 for abd. pain. Chief Complaint: [Abdominal pain] Principal diagnosis: Acute cholangitis versus pancreatitis Interval history: The patient appears diaphoretic and looks unwell. She continues to complain of severe abdominal pain and nausea. Constitutional Vitals: Vital Signs Temp Pulse Resp BP Pulse Ox O2 Del Method O2 Flow Rate 99.4 F H 80 20 117/66 97 2 04/11/22 08:00 04/11/22 08:00 04/11/22 08:00 04/11/22 08:00 04/11/22 08:00 04/11/22 08:00 04/11/22 08:00 Period Temp Pulse Resp BP Sys/Gan Pulse Ox O2 Del Method O2 Flow Rate Last 24 Hr 97.9 F-100.8 F 80-108 20-24 90-160/56-129 90-100 Nasal Cannula-Room Air 2-2 Intake and Output 04/10/22 04/11/22 04/11/22 19:59 03:59 11:59 Intake Total 1050 2000 1000 Balance 1050 2000 1000 Weight 114.759 kg 119.204 kg Intake & Output: Intake & Output 04/10/22 04/11/22 04/11/22 19:59 03:59 11:59 Intake Total 1050 2000 1000 Balance 1050 2000 1000 Weight 114.759 kg 119.204 kg Intake: IV 1050 2000 1000 Lactated Ringers 1,000 ml @ 200 1000 2000 1000 mls/hr IV .Q5H [facility] Rx#: [id number] Zosyn 3.375 gm In Dextrose 5% 50 in Water 50 ml @ 100 mls/hr IV ONCE ONE Rx#:[id number] Oral 0 Head Head exam: Present atraumatic and normal inspection Eye Eye exam: Present normal appearance ENT ENT exam: Present mucous membranes moist, normal exam and normal external ear exam Neck Neck exam: Present normal inspection Respiratory Respiratory exam: Present normal respiratory exam Cardiovascular Cardiovascular exam: Present normal rate and rhythm GI/Abdominal GI/Abdominal exam: Present normal bowel sounds Back Exam Back exam: Present normal inspection Neurological Exam Neurological exam: Present alert and oriented X3 Skin Skin exam: Present intact and warm OBJ DATA Labs CBC & Chem 7: 04/11/22 05:15 04/11/22 05:15 Labs: Abnormal Lab Results 04/11/22 04/11/22 04/11/22 05:15 05:15 05:15 WBC RBC Hgb Hct POC Hct Neut % (Auto) Lymph % (Auto) 15.1 L Lymph # (Auto) 1.01 L Absolute Neutrophils POC VBG pH POC VBG pCO2 at Temp POC VBG HCO3 POC VBG Total CO2 VBG Lactic Acid Potassium 2.8 L* POC Total CO2 POC BUN BUN 21 H POC Glucose Calcium 8.2 L POC WB Ioniz Calcium AST ALT Lipase 443 H Procalcitonin Urine Appearance Urine Protein Urine Ketones Ur Squamous Epith Cells Hyaline Casts Urine Mucus Urine Yeast (Budding) 04/10/22 04/10/22 04/10/22 16:35 16:30 15:23 WBC RBC Hgb Hct POC Hct Neut % (Auto) Lymph % (Auto) Lymph # (Auto) Absolute Neutrophils POC VBG pH 7.50 H POC VBG pCO2 at Temp 27.1 L POC VBG HCO3 21.2 L POC VBG Total CO2 22.0 L VBG Lactic Acid 3.3 H Potassium POC Total CO2 POC BUN BUN POC Glucose Calcium POC WB Ioniz Calcium AST 36 H ALT 58 H Lipase 900 H Procalcitonin 0.32 H Urine Appearance Urine Protein Urine Ketones Ur Squamous Epith Cells Hyaline Casts Urine Mucus Urine Yeast (Budding) 04/10/22 04/10/22 04/10/22 15:23 15:18 14:57 WBC 13.4 H RBC 5.57 H Hgb 16.4 H Hct 48.4 H POC Hct 50.0 H Neut % (Auto) 91.8 H Lymph % (Auto) 4.5 L Lymph # (Auto) 0.60 L Absolute Neutrophils 12.32 H POC VBG pH POC VBG pCO2 at Temp POC VBG HCO3 POC VBG Total CO2 VBG Lactic Acid Potassium POC Total CO2 21.0 L POC BUN 25 H BUN POC Glucose 155 H Calcium POC WB Ioniz Calcium 0.99 L AST ALT Lipase Procalcitonin Urine Appearance Hazy A Urine Protein 100 A Urine Ketones 80 A Ur Squamous Epith Cells 14 H Hyaline Casts 3 H Urine Mucus Many A Urine Yeast (Budding) Few A Meds: Medications Acetaminophen (Acetaminophen 325 Mg Tablet) 650 mg PO Q6HP PRN; Protocol PRN Reason: Per Pain Protocol Last Admin: 04/10/22 21:46 Dose: 650 mg Docusate Sodium (Docusate Sodium 100 Mg Capsule) 100 mg PO BID [facility] Last Admin: 04/11/22 08:54 Dose: Not Given Enoxaparin Sodium (Enoxaparin 40 Mg/0.4 Ml Syringe) 40 mg SQ DAILY [facility] Last Admin: 04/11/22 08:54 Dose: 40 mg Lactated Ringer's (Lactated Ringers) 1,000 mls @ 200 mls/hr IV .Q5H [facility] Last Admin: 04/11/22 07:55 Dose: 200 mls/hr Potassium Chloride 40 meq/ (Dextrose) 520 mls @ 130 mls/hr IV ONCE ONE Stop: 04/11/22 11:53 Metronidazole (Flagyl) 500 mg in 100 mls @ 100 mls/hr IV Q8H [facility]; Protocol Last Admin: 04/11/22 08:54 Dose: 100 mls/hr Ciprofloxacin (Cipro) 400 mg in 200 mls @ 200 mls/hr IV Q12H [facility]; Protocol Morphine Sulfate (Morphine 4 Mg/Ml Vial) 4 mg IV Q4HP PRN; Protocol PRN Reason: Per Pain Protocol Last Admin: 04/11/22 06:02 Dose: 4 mg Ondansetron HCl (Ondansetron 4 Mg/2 Ml Vial) 8 mg IV Q6HP PRN PRN Reason: Nausea And Vomiting Last Admin: 04/11/22 03:46 Dose: 8 mg Oxycodone/Acetaminophen (Oxycodone/Apap 5/325mg Tablet) 1 tab PO Q4HP PRN; Protocol PRN Reason: Per Pain Protocol Last Admin: 04/11/22 02:53 Dose: 1 tab Senna (Sennosides 1 Tablet) 2 tab PO HS [facility] Last Admin: 04/10/22 21:46 Dose: Not Given Sodium Chloride (0.9 % Sodium Chloride 10 Ml Syringe) 10 ml IV Q8 [facility] Last Admin: 04/11/22 04:01 Dose: Not Given A/P Assessment and plan (1) Acute pancreatitis: Status: Acute (2) Diabetes: Status: Chronic Qualifiers: Diabetes mellitus type: type 2 Diabetes mellitus ocean transportation intermediary insulin use: without assisted use Diabetes mellitus complication status: with kidney complications Diabetes mellitus complication detail: with chronic kidney disease (3) Sepsis: Status: Acute (4) Acute cholangitis: Status: Acute Narrative A/P Narrative: #Sepsis -The patient is febrile w/ a Tmax of 100.8, and elevated WBC of 13.4. She was also tachycardic w/ HR >90 -LA 3.3 -Continue aggressive IVF #Acute cholangitis -This is likely acute cholangitis rather than acute pancreatitis. Fever, RUQ pain, however no jaundice -There also may be concerns for spinchter of Oddi dysfunction -LFTs are trending upwards, lipase down to 443 -Blood cx pending, continue Cipro/Flagyl -GI consulted #HTN -Hold home diuretics #DM2 -Holding home tirzepatide Time Spent With Patient Time: Total time spent is greater than 50% in coordination of care (as documented) at patient's floor/unit and/or counseling patient: Subsequent: Total time with patient: 25 - 34 minutes
[2022-04-11] MEDS: ACETAMINOPHEN 325 MG TABLET PO PRN ×2 (09:57→18:57)
--- NOTE | 2022-04-11 11:36 | Internal Medicine Consult Note ---
HPI Date of Consult Consult Date: 04/11/22 Requesting physician: Feli Sherman Primary Care Provider: TESSA Carpenter Consult Narrative Chief complaint: pancreatitis Reason for consult: pancreatitis History of present illness: Lauren is a 61 year old white female diabetic with obesity who is s/p sleeve gastrectomy and cholecystectomy who was admitted for acute pancreatitis. Yesterday, she woke around 4 am and rolled on her right side. She developed severe sudden onset epigastric pain that radiated intrascapularly, followed by d iarrhea and vomtiing every 15 minutes. She had short term relief with Zofran. CT showed bile duct 11mm and lipase 900 with mild transaminase elevation. She continues to have vomiting and pain with low grade fever despite Cipro and flagyl and tylenol. She was previously on ozempic but couldn't get this due to supply issues and started Ozempic in December. She was unable to get it due to supply chain issues and changed to Monjuaro in Late january. She also incrased her HCTZ at that time due to handswelling. She underwent cholecystectomy in due to cholelithiasis. She was on opioids for 3 months 3 years ago after chronic post op pain for a knee replacement. She rarely drinks ETOH, has no family history of pancreatitis, TG 217. cc:: CC: Feli Sherman MD Review of Systems All systems: reviewed and no additional remarkable complaints except as stated PFSH PFSH All Active Problems Acute cholangitis (Acute) Sepsis (Acute) Acute pancreatitis (Acute) Obstructive sleep apnea (Chronic) Diabetes (Chronic) H/O rectocele repair (Acute) Hypercalcemia (Acute) Chronic kidney disease (Chronic) Restrictive lung disease (Chronic) Nocturnal hypoxia (Chronic) Lower extremity weakness (Acute) Elevated liver enzymes (Chronic) Hyperglycemia (Chronic) Recurrent candidiasis of vagina (Chronic) Sinusitis, acute maxillary (Acute) Pulmonary scarring (Chronic) Shortness of breath (Chronic) Fluid retention (Chronic) H/O cardiac radiofrequency ablation (Acute) Morbid obesity with BMI of 40.0-44.9, adult (Chronic) Asthma (Chronic) Acute URI (Acute) Cough (Chronic) Atrial fibrillation (Chronic) Tachycardia with heart rate 121-140 beats per minute (Acute) Abnormal vaginal bleeding in postmenopausal patient (Chronic) Acute pelvic pain, female (Acute) Cervicitis, acute, non-specific (Acute) Bronchospasm (Acute) Pneumonia (Acute) Encounter for Health Maintenance Examination in Adult (Acute) History of hysterectomy leaving cervix intact (Chronic) Cholecystectomy planned (Chronic) Obesity (Chronic) Hiatal hernia (Chronic) Arthritis of left knee (Chronic) Arthralgia (Chronic) Hypertension (Chronic) Sleep apnea (Chronic) Anxiety (Chronic) Allergic rhinitis (Chronic) Hemorrhoid (Chronic) Restless leg syndrome (Chronic) Hyperlipidemia (Chronic) Edema (Chronic) Epigastric pain (Chronic) Palpitations (Chronic) Insomnia (Chronic) Depression with anxiety (Chronic) History of pancreatitis (Chronic) Chronic diarrhea (Chronic) Hypothyroidism (Chronic) Migraine (Chronic) Atrophic vaginitis (Chronic) GERD (gastroesophageal reflux disease) (Chronic) Chronic back pain (Chronic) Chronic sinusitis (Chronic) Cardiomegaly (Chronic) Surgical menopause (Chronic) Hormone replacement therapy (Chronic) Hyperglycemia (Chronic) Major depression (Chronic) Diverticulosis (Chronic) Myalgia (Chronic) Headache (Chronic) Hypotension (Chronic) Unintentional weight loss (Chronic) Decrease in appetite (Chronic) Sinusitis, acute maxillary (Chronic) Fatigue (Chronic) Gastritis (Chronic) Postmenopausal (Chronic) Encounter for medication monitoring (Chronic) Chronic narcotic use (Chronic) Nausea (Chronic) Upper respiratory infection (Chronic) Status post total knee replacement (Acute) Medical History Allergic rhinitis Anxiety Arthralgia Arthritis of left knee Atrophic vaginitis Cardiomegaly Cholecystectomy planned 02/2016 Chronic back pain Chronic diarrhea Chronic narcotic use Chronic sinusitis Decrease in appetite Depression with anxiety Diverticulosis Edema Encounter for medication monitoring Epigastric pain Fatigue Gastritis GERD (gastroesophageal reflux disease) Headache Hemorrhoid Hiatal hernia per CXR 07/2015, history of failed Familia fundoplication History of pancreatitis Hormone replacement therapy Hyperglycemia Hyperlipidemia Hypertension Hypotension Hypothyroidism Insomnia Major depression Migraine Myalgia Nausea Nocturnal hypoxia Obesity Palpitations Postmenopausal Pulmonary scarring Restless leg syndrome Restrictive lung disease Sinusitis, acute maxillary Sleep apnea Surgical menopause Unintentional weight loss Upper respiratory infection Surgical History H/O bariatric surgery gastric sleeve 2016 History of cholecystectomy (~02/2016) History of hysterectomy ~1997 Ovaries removed, cervix spared History of repair of rectocele Dr. Quiroz 12/08/21 Total knee replacement status LT knee Dr. Gallo Family History Other No pertinent family history Social History household members: other details: 2 adult children marital status: education level: college occupational status: retired occupation: RN at [employer] other: Two Adult Children daily servings fruits/ve-1 physical activity: none frequency: 3-4 times per week duration: 45-60 minutes/day smoking status: Never smoker alcohol intake frequency: 0-2 drinks per day substance use type: does not use seatbelt use: always MEDS/ALLERGIES Home Medications and Allergies Home Medications Medication Instructions Recorded Confirmed Type cholecalciferol (vitamin D3) 125 125 mcg PO QDAY 09/02/19 04/11/22 History mcg (5,000 unit) capsule furosemide 20 mg tablet 20 mg PO QAM #90 tabs 08/30/21 04/11/22 Rx estradiol 2 mg (7.5 mcg/24 hour) See Rx Instructions .Route 10/04/21 04/11/22 Rx vaginal ring (Estring) .COMPLEX #1 Ring aspirin 81 mg tablet,delayed 81 mg PO QHS 12/07/21 04/11/22 History release ondansetron 4 mg disintegrating 4 mg PO Q6H PRN nausea and 01/10/22 04/11/22 Rx tablet vomiting #20 tabs spironolactone 25 2 tab PO QDAY #180 tabs 03/21/22 04/11/22 Rx mg-hydrochlorothiazide 25 mg tablet tirzepatide 5 mg/0.5 mL 5 mg (0.5 mL) subcut QWEEK #2 mL 03/21/22 04/11/22 Rx subcutaneous pen injector (Mounjaro) tirzepatide 2.5 mg/0.5 mL 2.5 mg (0.5 mL) subcut QWEEK 4 03/22/22 04/11/22 Rx subcutaneous pen injector weeks #2 mL (Mounjaro) zolpidem 10 mg tablet 10 mg PO HS INSOMNIA #90 tabs 03/31/22 04/11/22 Rx albuterol sulfate 2.5 mg/3 mL 2.5 mg inhalation QIDP PRN 04/11/22 04/11/22 History (0.083 %) solution for nebulization shortness of breath or wheezing albuterol sulfate 90 mcg/actuation 2 puff inhalation Q4-6HP PRN 04/11/22 04/11/22 History aerosol inhaler (Ventolin HFA) shortness of breath or wheezing bupropion HCl 300 mg 24 hr tablet, 300 mg PO DAILY 04/11/22 04/11/22 History extended release fluoxetine 40 mg capsule 40 mg PO BID 04/11/22 04/11/22 History levothyroxine 50 mcg tablet 50 mcg PO QAMAC 04/11/22 04/11/22 History magnesium oxide 400 mg PO HS 04/11/22 04/11/22 History omeprazole 20 mg capsule,delayed 20 mg PO BIDAC 04/11/22 04/11/22 History release Allergies Allergy/AdvReac Type Severity Reaction Status Date / Time iron dextran complex Allergy Severe Difficulty Verified 04/10/22 13:46 Breathing gabapentin [From Neurontin] Allergy Unknown Unknown Verified 04/10/22 21:22 droperidol AdvReac Mild Anxiety Verified 04/10/22 13:46 prochlorperazine AdvReac Mild Vomiting Verified 04/10/22 13:46 [From Compazine] IVP DYE Allergy Mild Hives Uncoded 03/21/22 08:04 EXAM Constitutional Vitals: Temp Pulse Resp BP Pulse Ox O2 Del Method O2 Flow Rate 99.4 F H 80 20 117/66 97 2 04/11/22 08:00 04/11/22 08:00 04/11/22 08:00 04/11/22 08:00 04/11/22 08:00 04/11/22 08:00 04/11/22 08:00 General appearance: obese Head Head exam: Present atraumatic and normal inspection Eye Eye exam: Present normal appearance ENT ENT exam: Present mucous membranes moist Neck Neck exam: Present normal inspection Respiratory Respiratory exam: Present normal respiratory exam; Absent rhonchi or wheezes Cardiovascular Cardiovascular exam: Present normal rate and rhythm GI/Abdominal GI/Abdominal exam: Present normal bowel sounds and tenderness Additional comments: epigastrium and RUQ Expanded GI/Abdominal Exam GI/Abdominal exam: Absent ascites Neurological Exam Neurological exam: Present alert and oriented X3 Psychiatric Psychiatric exam: Present normal affect and normal mood Skin Skin exam: Present dry and warm DATA Data Completed and Pending Labs: Labs from last 24 hours 04/11/22 04/11/22 04/11/22 05:15 05:15 05:15 WBC 6.7 RBC 4.53 Hgb 13.2 Hct 41.2 POC Hct MCV 90.9 MCH 29.1 MCHC 32.0 RDW 13.1 Plt Count 186 MPV 10.5 Immature Gran % (Auto) 0.4 Neut % (Auto) 75.9 Lymph % (Auto) 15.1 L [place] % (Auto) 8.2 Eos % (Auto) 0.1 Baso % (Auto) 0.3 Lymph # (Auto) 1.01 L [place] # (Auto) 0.55 Eos # (Auto) 0.01 Baso # (Auto) 0.02 Immature Gran # 0.03 Absolute Neutrophils 5.07 POC VBG pH POC VBG pCO2 at Temp POC VBG pO2 POC VBG HCO3 POC VBG Total CO2 POC Venous O2 Sat POC VBG Base Excess VBG Lactic Acid POC Sodium Sodium 139 POC Potassium Potassium 2.8 L* POC Chloride Chloride 105 Carbon Dioxide 22 POC Total CO2 Anion Gap 12.0 POC BUN BUN 21 H Creatinine 0.9 POC Creatinine GFR Calculation 70 Glucose 97 POC Glucose Calcium 8.2 L POC WB Ioniz Calcium Total Bilirubin Direct Bilirubin AST ALT Alkaline Phosphatase Total Protein Albumin Globulin Lipase 443 H Procalcitonin Urine Color Urine Appearance Urine pH Ur Specific [place] Urine Protein Urine Glucose (UA) Urine Ketones Urine Occult Blood Urine Nitrate Urine Bilirubin Urine Urobilinogen Ur Leukocyte Esterase Urine RBC Urine WBC Ur Squamous Epith Cells Urine Bacteria Hyaline Casts Urine Mucus Urine Yeast (Budding) Ur Culture Indicated? 04/10/22 04/10/22 04/10/22 16:35 16:30 15:23 WBC RBC Hgb Hct POC Hct MCV MCH MCHC RDW Plt Count MPV Immature Gran % (Auto) Neut % (Auto) Lymph % (Auto) [place] % (Auto) Eos % (Auto) Baso % (Auto) Lymph # (Auto) [place] # (Auto) Eos # (Auto) Baso # (Auto) Immature Gran # Absolute Neutrophils POC VBG pH 7.50 H POC VBG pCO2 at Temp 27.1 L POC VBG pO2 28 POC VBG HCO3 21.2 L POC VBG Total CO2 22.0 L POC Venous O2 Sat 62.0 POC VBG Base Excess -2.0 VBG Lactic Acid 3.3 H POC Sodium Sodium POC Potassium Potassium POC Chloride Chloride Carbon Dioxide POC Total CO2 Anion Gap POC BUN BUN Creatinine POC Creatinine GFR Calculation Glucose POC Glucose Calcium POC WB Ioniz Calcium Total Bilirubin 0.9 Direct Bilirubin < 0.2 AST 36 H ALT 58 H Alkaline Phosphatase 79 Total Protein 7.4 Albumin 4.5 Globulin 2.9 Lipase 900 H Procalcitonin 0.32 H Urine Color Urine Appearance Urine pH Ur Specific [place] Urine Protein Urine Glucose (UA) Urine Ketones Urine Occult Blood Urine Nitrate Urine Bilirubin Urine Urobilinogen Ur Leukocyte Esterase Urine RBC Urine WBC Ur Squamous Epith Cells Urine Bacteria Hyaline Casts Urine Mucus Urine Yeast (Budding) Ur Culture Indicated? 04/10/22 04/10/22 04/10/22 15:23 15:18 14:57 WBC 13.4 H RBC 5.57 H Hgb 16.4 H Hct 48.4 H POC Hct 50.0 H MCV 86.9 MCH 29.4 MCHC 33.9 RDW 12.6 Plt Count 272 MPV 10.5 Immature Gran % (Auto) 0.3 Neut % (Auto) 91.8 H Lymph % (Auto) 4.5 L [place] % (Auto) 3.1 Eos % (Auto) 0 Baso % (Auto) 0.3 Lymph # (Auto) 0.60 L [place] # (Auto) 0.41 Eos # (Auto) 0 Baso # (Auto) 0.04 Immature Gran # 0.04 Absolute Neutrophils 12.32 H POC VBG pH POC VBG pCO2 at Temp POC VBG pO2 POC VBG HCO3 POC VBG Total CO2 POC Venous O2 Sat POC VBG Base Excess VBG Lactic Acid POC Sodium 140 Sodium POC Potassium 3.4 Potassium POC Chloride 104 Chloride Carbon Dioxide POC Total CO2 21.0 L Anion Gap POC BUN 25 H BUN Creatinine POC Creatinine 1.0 GFR Calculation Glucose POC Glucose 155 H Calcium POC WB Ioniz Calcium 0.99 L Total Bilirubin Direct Bilirubin AST ALT Alkaline Phosphatase Total Protein Albumin Globulin Lipase Procalcitonin Urine Color [place] Urine Appearance Hazy A Urine pH 5.0 Ur Specific [place] 1.032 Urine Protein 100 A Urine Glucose (UA) Negative Urine Ketones 80 A Urine Occult Blood Negative Urine Nitrate Negative Urine Bilirubin Negative Urine Urobilinogen Negative Ur Leukocyte Esterase Negative Urine RBC < 1 Urine WBC 2 Ur Squamous Epith Cells 14 H Urine Bacteria None Hyaline Casts 3 H Urine Mucus Many A Urine Yeast (Budding) Few A Ur Culture Indicated? No A/P Assessment and plan (1) Acute pancreatitis: Status: Acute Plan Reviewed her case with Dr. Silverio. We suspect she has acute drug induced pancreatitis either due to HCTZ or GLP 1 RA. Fortunately her lipase has dropped form 900 to 443. Supportive care for now. If she worsens, transfer for EUS would be the next step. Although antibiotics are not indicated in the managemnt of acute pancreatitis, they may be continued in light of her fevers. With antibiotic use, there is a risk for complicated infection as a delayed complication of acute pancreatitis. Time Spent With Patient Time: Total time spent is greater than 50% in coordination of care (as documented) at patient's floor/unit and/or counseling patient:
[2022-04-11] MEDS: SENNOSIDES 1 TABLET PO SCH (22:00)
[2022-04-12] MEDS: ONDANSETRON 4 MG/2 ML VIAL IV PRN ×3 (03:13→20:51)
[2022-04-12] MEDS: morphine 4 MG/ML VIAL IV PRN ×5 (03:13→20:59)
[2022-04-12] MEDS: LACTATED RINGERS 1,000 ML IV SCH ×4 (04:08→18:57)
[2022-04-12] MEDS: metroNIDAZOLE 500 MG/100 ML BAG IV SCH ×3 (05:53→20:58)
[2022-04-12] MEDS: ACETAMINOPHEN 325 MG TABLET PO PRN (07:31)
[2022-04-12] MEDS: 0.9 % SODIUM CHLORIDE 10 ML SYRINGE IV SCH ×4 (07:33→20:58)
[2022-04-12] MEDS: CIPROFLOXACIN 400 MG/200 ML BAG IV SCH ×2 (09:01→20:52)
[2022-04-12] MEDS: ENOXAPARIN 40 MG/0.4 ML SYRINGE SQ SCH (09:02)
[2022-04-12] MEDS ORDERED: PROCHLORPERAZINE 10 MG/2 ML VIAL IV PRN (09:23)
[2022-04-12] MEDS: oxyCODONE/APAP 5/325MG TABLET PO PRN ×2 (10:20→14:19)
[2022-04-12 10:30] LABS: ALT/SGPT 32 U/L (<40); AST/SGOT 25 U/L (<32); Albumin 3.2 gm/dL (3.2-5.2); Albumin/Globulin Ratio 1.5 (1.0-2.3); Alkaline Phosphatase 48 U/L (39-117); Bilirubin,Total 0.4 mg/dL (0.1-1.0); Blood Urea Nitrogen 14 mg/dL (6-20); Calcium 8.2 mg/dL (8.6-10.4); Carbon Dioxide 26 mmol/L (22-30); Chloride 103 mmol/L (96-108); Globulin 2.2 gm/dL (2.2-3.7); Glomerular Filtration Rate 80; Glucose 87 mg/dL (70-105)
[2022-04-12] MEDS: DOCUSATE SODIUM 100 MG CAPSULE PO SCH ×2 (11:11→20:52)
--- NOTE | 2022-04-12 11:45 | Internal Med Progress Note ---
SUBJECTIVE Subjective Patient information: Note initiated : 04/12/22 at 11:41 am Service Date, if different from initiated Date: [] Patient: Lauren Delgado 61 y/o F admitted on 04/10/22 for abd. pain. Chief Complaint: [Abdominal pain] Principal diagnosis: Acute cholangitis versus pancreatitis Interval history: The patient appeared uncomfortable in bed. She continues to complain of significant abdominal pain. She is diaphoretic. She continues to experience nausea. There is no improvement since yesterday she states. Constitutional Vitals: Vital Signs Temp Pulse Resp BP Pulse Ox O2 Del Method O2 Flow Rate 100.3 F H 78 20 108/57 93 2 04/12/22 07:47 04/12/22 07:47 04/12/22 07:47 04/12/22 07:47 04/12/22 07:47 04/12/22 07:47 04/11/22 08:00 Period Temp Pulse Resp BP Sys/Gan Pulse Ox O2 Del Method O2 Flow Rate Last 24 Hr 98.5 F-101.7 F 73-78 18-20 104-118/53-66 92-96 Room Air-Room Air Intake and Output 04/11/22 04/12/22 04/12/22 19:59 03:59 11:59 Intake Total 1620 1300 1300 Output Total 350 450 200 Balance 9863 835 9015 Weight 120.565 kg Intake & Output: Intake & Output 04/11/22 04/12/22 04/12/22 19:59 03:59 11:59 Intake Total 1620 1300 1300 Output Total 350 450 200 Balance 5143 962 4672 Weight 120.565 kg Intake: IV 1620 1300 1300 Lactated Ringers 1,000 ml @ 200 1000 1000 1000 mls/hr IV .Q5H [facility] Rx#: [id number] Potassium Chloride 40 Meq In 520 Dextrose 5% in Water 500 ml @ 130 mls/hr IV ONCE ONE Rx#: [id number] Oral 0 Output: Void Amount 350 200 Urine/Stool Mix 450 Other: Urine Appearance Clear Urine Color Light Dona Urine Odor Strong Stool Consistency Loose # of times incontinent of 1 Bowels General appearance: average body habitus, moderate distress and obese Head Head exam: Present atraumatic and normal inspection ENT ENT exam: Present mucous membranes dry Respiratory Respiratory exam: Present normal respiratory exam and CTAB; Absent accessory muscle use Cardiovascular Cardiovascular exam: Present tachycardia GI/Abdominal GI/Abdominal exam: Present normal bowel sounds, soft and tenderness; Absent distended Neurological Exam Neurological exam: Present alert, CN II-XII intact and oriented X3 Psychiatric Psychiatric exam: Present normal affect and normal mood Skin Skin exam: Present intact and warm OBJ DATA Labs CBC & Chem 7: 04/11/22 05:15 04/12/22 08:04 Labs: Abnormal Lab Results 04/12/22 04/11/22 04/11/22 08:04 05:15 05:15 WBC RBC Hgb Hct POC Hct Neut % (Auto) Lymph % (Auto) Lymph # (Auto) Absolute Neutrophils POC VBG pH POC VBG pCO2 at Temp POC VBG HCO3 POC VBG Total CO2 VBG Lactic Acid Potassium 3.0 L 2.8 L* POC Total CO2 Anion Gap 6.0 L POC BUN BUN 21 H POC Glucose Calcium 8.2 L 8.2 L POC WB Ioniz Calcium AST ALT Total Protein 5.4 L Lipase 443 H Procalcitonin Urine Appearance Urine Protein Urine Ketones Ur Squamous Epith Cells Hyaline Casts Urine Mucus Urine Yeast (Budding) 04/11/22 04/10/22 04/10/22 05:15 16:35 16:30 WBC RBC Hgb Hct POC Hct Neut % (Auto) Lymph % (Auto) 15.1 L Lymph # (Auto) 1.01 L Absolute Neutrophils POC VBG pH 7.50 H POC VBG pCO2 at Temp 27.1 L POC VBG HCO3 21.2 L POC VBG Total CO2 22.0 L VBG Lactic Acid 3.3 H Potassium POC Total CO2 Anion Gap POC BUN BUN POC Glucose Calcium POC WB Ioniz Calcium AST ALT Total Protein Lipase Procalcitonin 0.32 H Urine Appearance Urine Protein Urine Ketones Ur Squamous Epith Cells Hyaline Casts Urine Mucus Urine Yeast (Budding) 04/10/22 04/10/22 04/10/22 15:23 15:23 15:18 WBC 13.4 H RBC 5.57 H Hgb 16.4 H Hct 48.4 H POC Hct 50.0 H Neut % (Auto) 91.8 H Lymph % (Auto) 4.5 L Lymph # (Auto) 0.60 L Absolute Neutrophils 12.32 H POC VBG pH POC VBG pCO2 at Temp POC VBG HCO3 POC VBG Total CO2 VBG Lactic Acid Potassium POC Total CO2 21.0 L Anion Gap POC BUN 25 H BUN POC Glucose 155 H Calcium POC WB Ioniz Calcium 0.99 L AST 36 H ALT 58 H Total Protein Lipase 900 H Procalcitonin Urine Appearance Urine Protein Urine Ketones Ur Squamous Epith Cells Hyaline Casts Urine Mucus Urine Yeast (Budding) 04/10/22 14:57 WBC RBC Hgb Hct POC Hct Neut % (Auto) Lymph % (Auto) Lymph # (Auto) Absolute Neutrophils POC VBG pH POC VBG pCO2 at Temp POC VBG HCO3 POC VBG Total CO2 VBG Lactic Acid Potassium POC Total CO2 Anion Gap POC BUN BUN POC Glucose Calcium POC WB Ioniz Calcium AST ALT Total Protein Lipase Procalcitonin Urine Appearance Hazy A Urine Protein 100 A Urine Ketones 80 A Ur Squamous Epith Cells 14 H Hyaline Casts 3 H Urine Mucus Many A Urine Yeast (Budding) Few A Meds: Medications Acetaminophen (Acetaminophen 325 Mg Tablet) 650 mg PO Q6HP PRN; Protocol PRN Reason: Per Pain Protocol Last Admin: 04/12/22 07:31 Dose: 650 mg Docusate Sodium (Docusate Sodium 100 Mg Capsule) 100 mg PO BID [facility] Last Admin: 04/12/22 11:11 Dose: Not Given Enoxaparin Sodium (Enoxaparin 40 Mg/0.4 Ml Syringe) 40 mg SQ DAILY [facility] Last Admin: 04/12/22 09:02 Dose: 40 mg Metronidazole (Flagyl) 500 mg in 100 mls @ 100 mls/hr IV Q8H [facility]; Protocol Last Infusion: 04/12/22 07:06 Dose: Infused Ciprofloxacin (Cipro) 400 mg in 200 mls @ 200 mls/hr IV Q12H [facility]; Protocol Last Infusion: 04/12/22 10:05 Dose: Infused Lactated Ringer's (Lactated Ringers) 1,000 mls @ 100 mls/hr IV .Q10H [facility] Levothyroxine Sodium (Levothyroxine 50 Mcg Tablet) 50 mcg PO QAMAC [facility] Morphine Sulfate (Morphine 4 Mg/Ml Vial) 4 mg IV Q4HP PRN; Protocol PRN Reason: Per Pain Protocol Last Admin: 04/12/22 07:43 Dose: 4 mg Ondansetron HCl (Ondansetron 4 Mg/2 Ml Vial) 8 mg IV Q6HP PRN PRN Reason: Nausea And Vomiting Last Admin: 04/12/22 09:01 Dose: 8 mg Oxycodone/Acetaminophen (Oxycodone/Apap 5/325mg Tablet) 2 tab PO Q4HP PRN; Protocol PRN Reason: Per Pain Protocol Last Admin: 04/12/22 10:20 Dose: 2 tab Prochlorperazine (Prochlorperazine 10 Mg/2 Ml Vial) 10 mg IV Q4-6HP PRN PRN Reason: Nausea And Vomiting Last Admin: 04/12/22 10:23 Dose: 10 mg Senna (Sennosides 1 Tablet) 2 tab PO HS [facility] Last Admin: 04/11/22 22:00 Dose: Not Given Sodium Chloride (0.9 % Sodium Chloride 10 Ml Syringe) 10 ml IV Q8 [facility] Last Admin: 04/12/22 07:33 Dose: Not Given A/P Assessment and plan (1) Acute pancreatitis: Status: Acute (2) Diabetes: Status: Chronic Qualifiers: Diabetes mellitus type: type 2 Diabetes mellitus shelter insulin use: without insurance counselor use Diabetes mellitus complication status: with kidney comp lications Diabetes mellitus complication detail: with chronic kidney disease (3) Sepsis: Status: Acute (4) Acute cholangitis: Status: Acute Narrative A/P Narrative: #Sepsis -The patient is febrile w/ a Tmax of 100.8, and elevated WBC of 13.4. She was also tachycardic w/ HR >90 -LA 3.3 on admission -The patient continues to spike fevers, and we will repeat LA. IVF decreased from LR 200cc/h to 100cc/h #Acute cholangitis -This is likely acute cholangitis rather than acute pancreatitis. Fever, RUQ pain, however no jaundice -There also may be concerns for spinchter of Oddi dysfunction -LFTs are trending upwards, lipase down to 443 -Blood cx pending, continue Cipro/Flagyl -GI consulted-> nay beed ERCP/EUS and rec transfer. Discussed w/ Dr. Silverio #HTN -Hold home diuretics #DM2 -Holding home tirzepatide Time Spent With Patient Time: Total time spent is greater than 50% in coordination of care (as documented) at patient's floor/unit and/or counseling patient:
[2022-04-12] MEDS ORDERED: LORazepam 2 MG/ML VIAL IV ONE (14:29)
--- NOTE | 2022-04-12 16:48 | Magnetic Resonance Report ---
History: Dilated bile ducts, prior cholecystectomy, evaluate for cholangitis TECHNIQUE: Multiplanar imaging was performed using multiple pulse sequences. 3-D reformats of the bile ducts were created. FINDINGS: There is a moderate size hiatus hernia with an air-fluid level. This is unchanged from the prior CT scan. The liver is normal in size and homogeneous. There is no evidence of a mass inflammation or cirrhosis. The gallbladder is been removed. There is moderate dilatation of the common hepatic and common bile duct. Common hepatic duct is 9.3 mm common bile duct is 9.4 mm. The wall of the ducts are smooth without evidence of inflammation. Intrahepatic ducts are nondilated. There is no evidence of a stone or mass. There is an abrupt transition in the distal common bile duct at the ampulla. There is no apparent inflammation at that level. The pancreatic duct is normal. The spleen and pancreas are normal. No abnormality is seen in the adrenals or kidneys. There has been no significant change since 04/10/22. IMPRESSION: Dilated extrahepatic bile ducts, without evidence of cholangitis. The dilatation may be due to a stricture at the ampulla or reservoir effect following a prior cholecystectomy. Interpreted and Authenticated by: Dusty Moe 04/12/22
[2022-04-12] MEDS: SENNOSIDES 1 TABLET PO SCH (20:53)
[2022-04-13] MEDS ORDERED: LEVOTHYROXINE 50 MCG TABLET PO SCH (07:30)
== END 2022-04-12 21:07 | disposition short-term general hospital (02) | DRG 438 ==
LOC: ED 13:40 → MEDSUR 21:16
PROVIDERS: ADMIT Student in an Organized Health Care Education/Training Program; ATTEND Student in an Organized Health Care Education/Training Program